=== PATIENT | female | born 1945 | race Caucasian/White ===

== ENCOUNTER 2020-05-09 07:06 | Outpatient (REF) | payer MEDICARE, SELFPAY ==
[2020-05-09 11:58] LABS: Anion Gap 14 (12-20); Blood Urea Nitrogen 19 mg/dL (9-16); Calcium 9.5 mg/dL (8.4-10.2); Carbon Dioxide 29 mmol/L (22-29); Chloride 99 mmol/L (96-108); Cholesterol 158 mg/dL; Estimated Glomerular Filt Rate 55; Glucose Random 114 mg/dL (60-115); HDL Cholesterol 46 mg/dL; LDL Cholesterol Calculated 84 mg/dl; Sodium 138 mmol/L (135-145); Triglycerides 141 mg/dL
[2020-05-09 12:21] LABS: ~HepC Num1 0.18 S/CO (0.00-0.79); ~Hepatitis C Antibody Nonreactive (Nonreactive)
== END 2020-05-09 07:07 | disposition home or self-care (01) ==
LOC: HO.HMGCLDS 07:06
PROVIDERS: PCP Nurse Practitioner Adult Health; Visit Provider Nurse Practitioner Adult Health
DX: Z00.00 Encounter for general adult medical examination without abnormal findings (principal)
CPT/HCPCS: 36415; 80048; 80061; 86803

== ENCOUNTER 2020-08-28 07:23 | Outpatient (REF) | payer MEDICARE, SELFPAY ==
[2020-08-28 12:14] LABS: Anion Gap 14 (12-20); Blood Urea Nitrogen 20 mg/dL (9-16); Calcium 9.5 mg/dL (8.4-10.2); Carbon Dioxide 29 mmol/L (22-29); Chloride 101 mmol/L (96-108); Estimated Glomerular Filt Rate 50; Glucose Random 107 mg/dL (60-115); Potassium 4.2 mmol/L (3.3-5.1); Sodium 140 mmol/L (135-145)
== END 2020-08-28 07:24 | disposition home or self-care (01) ==
LOC: HO.HMGCLDS 07:23
PROVIDERS: PCP Nurse Practitioner Adult Health; Visit Provider Nurse Practitioner Adult Health
DX: Z00.00 Encounter for general adult medical examination without abnormal findings (principal)
CPT/HCPCS: 36415; 80048

== ENCOUNTER 2021-03-20 09:00 | Outpatient (REF) | payer MEDICARE, SELFPAY ==
[2021-03-20 12:05] LABS: Anion Gap 13 (12-20); Blood Urea Nitrogen 18 mg/dL (9-16); Calcium 9.8 mg/dL (8.4-10.2); Carbon Dioxide 27 mmol/L (22-29); Chloride 103 mmol/L (96-108); Cholesterol 155 mg/dL; Estimated Glomerular Filt Rate 54; Glucose Random 118 mg/dL (60-115); HDL Cholesterol 46 mg/dL; LDL Cholesterol Calculated 79 mg/dl; Potassium 4.2 mmol/L (3.3-5.1); Sodium 139 mmol/L (135-145); Triglycerides 150 mg/dL
[2021-03-20 12:06] LABS: Thyroid Stimulating Hormone 1.81 uIU/mL (0.32-4.0)
== END 2021-03-20 09:01 | disposition home or self-care (01) ==
LOC: HO.HMGCLDS 09:00
PROVIDERS: Visit Provider Nurse Practitioner Adult Health
DX: E78.2 Mixed hyperlipidemia (principal)
CPT/HCPCS: 36415; 80048; 80061; 84443

== ENCOUNTER 2021-09-30 07:33 | Outpatient (REF) | payer MEDICARE, SELFPAY ==
[2021-09-30 11:47] LABS: Anion Gap 11 (12-20); Blood Urea Nitrogen 20 mg/dL (9-16); Calcium 9.1 mg/dL (8.4-10.2); Carbon Dioxide 29 mmol/L (22-29); Chloride 100 mmol/L (96-108); Cholesterol 152 mg/dL; Estimated Glomerular Filt Rate 50; Glucose Random 115 mg/dL (60-115); HDL Cholesterol 41 mg/dL; LDL Cholesterol Calculated 86 mg/dl; Potassium 4.1 mmol/L (3.3-5.1); Sodium 136 mmol/L (135-145); Triglycerides 127 mg/dL
[2021-09-30 11:54] LABS: Thyroid Stimulating Hormone 2.45 uIU/mL (0.32-4.0)
== END 2021-09-30 07:34 | disposition home or self-care (01) ==
LOC: HO.HMGCLDS 07:33
PROVIDERS: Visit Provider Nurse Practitioner Adult Health
DX: I10 Essential (primary) hypertension (principal); E78.2 Mixed hyperlipidemia; E66.9 Obesity, unspecified
CPT/HCPCS: 36415; 80048; 80061; 84443

== ENCOUNTER 2022-10-15 07:29 | Outpatient (REF) | payer MEDICARE, SELFPAY ==
[2022-10-15 12:12] LABS: Anion Gap 16 (12-20); Blood Urea Nitrogen 19 mg/dL (9-16); Calcium 9.9 mg/dL (8.4-10.2); Carbon Dioxide 25 mmol/L (22-29); Chloride 102 mmol/L (96-108); Cholesterol 145 mg/dL; Estimated Glomerular Filt Rate > 60; Glucose Random 121 mg/dL (60-115); HDL Cholesterol 37 mg/dL; LDL Cholesterol Calculated 76 mg/dl; Potassium 3.9 mmol/L (3.3-5.1); Sodium 139 mmol/L (135-145); Triglycerides 164 mg/dL
== END 2022-10-15 07:30 | disposition home or self-care (01) ==
LOC: HO.HMGCLDS 07:29
PROVIDERS: PCP Nurse Practitioner Adult Health; Visit Provider Nurse Practitioner Adult Health
DX: E78.2 Mixed hyperlipidemia (principal)
CPT/HCPCS: 36415; 80048; 80061

== ENCOUNTER 2023-04-17 08:16 | Outpatient (REF) | payer MEDICARE, SELFPAY ==
[2023-04-17 12:33] LABS: Anion Gap 12 (12-20); Blood Urea Nitrogen 23 mg/dL (9-16); Calcium 9.4 mg/dL (8.4-10.2); Carbon Dioxide 28 mmol/L (22-29); Chloride 103 mmol/L (96-108); Estimated Glomerular Filt Rate 53; Glucose Fasting 115 mg/dL (60-99); Potassium 4.1 mmol/L (3.3-5.1); Sodium 139 mmol/L (135-145)
== END 2023-04-17 08:17 | disposition home or self-care (01) ==
LOC: HO.HMGCLDS 08:16
PROVIDERS: PCP Nurse Practitioner Adult Health; Visit Provider Nurse Practitioner Adult Health
DX: I10 Essential (primary) hypertension (principal)
CPT/HCPCS: 36415; 80048

== ENCOUNTER 2023-09-25 13:06 | Outpatient (REF) | payer MEDICARE, SELFPAY ==
[2023-09-25 16:25] LABS: Anion Gap 12 (12-20); Blood Urea Nitrogen 16 mg/dL (9-16); Calcium 9.7 mg/dL (8.4-10.2); Carbon Dioxide 30 mmol/L (22-29); Chloride 97 mmol/L (96-108); Estimated Glomerular Filt Rate 60; Glucose Random 94 mg/dL (60-115); Potassium 3.8 mmol/L (3.3-5.1); Sodium 135 mmol/L (135-145)
== END 2023-09-25 13:07 | disposition home or self-care (01) ==
LOC: HO.HMGCLDS 13:06
PROVIDERS: Visit Provider Nurse Practitioner Adult Health
DX: I10 Essential (primary) hypertension (principal)
CPT/HCPCS: 36415; 80048

== ENCOUNTER 2024-04-07 12:39 | Outpatient (REF) | payer MEDICARE, SELFPAY ==
--- OUTSIDE RECORDS SUMMARY | 2024-04-07 14:59 | XMS_ITS | Data Portability ---
Author Organization [facility], FOR[facility]LY [facility] Address [address] [place] [address] Care Team Providers Care Engine Assembly Supervisor Name Role Phone BERRY JOSHI Primary Care Provider Assessment Encounter Date Assessment Date Assessment LastModified by Organization Details LastModified Time 05/12/2022 05/12/2022 Patient agreed t o this visit via a secure telehealth platform due to the COVID -19 pandemic. Patient understands this is a scheduled visit and the usual procedures with regard to billing and confidentiality apply. Patient was notified that the provider location is Patient location: home During the visit the patient? s medical history and medical record were reviewed. The patient was notified to call our office for worsening or urgent symptoms. Not available 05/12/2022 07:58:00 09/01/2022 09/01/2022 We completed you r Medicare Wellness exam today. This was an opportunity to assess your overall well being including your ability to care for yourself, your mobility, memory, mental health, as well as your safety. With advancing age, it is important to assign someone in your life as your Health Care Proxy (HCP). This person should know what is important to you and what your wishes are for medical procedures if you cannot communicate your wishes yourself (severe illness, unconsciousness). We discussed having a completed Health Care Proxy form today. In addition, today we started a conversation about your End of Life wishes. These conversations will continue over the years. Please consider reading the book, Being Mortal by Maxwell Tello to help frame future conversations. We discussed the purpose of a MOLST form (Medical Orders for Life Sustaining Treatment) and completed this form if appropriate per your wishes. Vision and Hearing are senses that are critically important as we age. When impaired, they can contribute to memory loss, falls, and make it harder to drive, talk to family and friends, and engage in the world. Please get your vision checked yearly and your hearing checked when you start to notice hearing loss. We discussed approaches to lowering your risk of heart disease and stroke . Your blood pressure is higher than goal consider lowering your salt intake. Your cholesterol .will recheck We discussed cancer screening you may need as well as vaccines to prevent infections. Colon Cancer : Your risk of colon cancer is higher than average due to personal history of colon polyps. Due for colorectal screenin. If you are not planning to have a colonoscopy please screen with stool cards yearly. Breast Cancer : Breast Cancer Screening (mammography). Next mammogram due: 2022. Cervical Cancer Screening (pap test). Next pap due: not needed. Influenza Vaccine : Flu shot yearly. Tetanus Vaccine : Every 10 years. Due: 2022. The following vaccines are available from your pharmacy: Pneumonia Vaccine : PCV20: once after age 65. Shingles Vaccine : 2 shots after age 50. Covid Vaccine : Make sure you have received the most up to date covid vaccine. Your personal health goal for the year is: [email or web address] Not available 09/01/2022 16:15:01 09/04/2023 09/04/2023 We completed you r Medicare Wellness exam today. This was an opportunity to assess your overall well being including your ability to care for yourself, your mobility, memory, mental health, as well as your safety. With advancing age, it is important to assign someone in your life as your Health Care Proxy (HCP). This person should know what is important to you and what your wishes are for medical procedures if you cannot communicate your wishes yourself (severe illness, unconsciousness). We discussed having a completed Health Care Proxy form today. In addition, today we started a conversation about your End of Life wishes. These conversations will continue over the years. Please consider reading the book, Being Mortal by Maxwell Tello to help frame future conversations. We discussed the purpose of a MOLST form (Medical Orders for Life Sustaining Treatment) and completed this form if appropriate per your wishes. Vision and Hearing are senses that are critically important as we age. When impaired, they can contribute to memory loss, falls, and make it harder to drive, talk to family and friends, and engage in the world. Please get your vision checked yearly and your hearing checked when you start to notice hearing loss. We discussed approaches to lowering your risk of heart disease and stroke . Your blood pressure is at goal. Your cholesterol is at goal. We discussed cancer screening you may need as well as vaccines to prevent infections. Colon Cancer : Your risk of colon cancer is higher than average due to personal history of colon polyps. Due for colorectal screenin. If you are not planning to have a colonoscopy please screen with stool cards yearly. Breast Cancer : Breast Cancer Screening (mammography). Next mammogram due: . Cervical Cancer Screening (pap test). Next pap due: not needed. Influenza Vaccine : Flu shot yearly. Tetanus Vaccine : Every 10 years. Due: 2023. The following vaccines are available from your pharmacy: Pneumonia Vaccine : PCV20: once after age 65. Shingles Vaccine : 2 shots after age 50. Covid Vaccine : Make sure you have received the most up to date covid vaccine. Your personal health goal for the year is: Patient is seen and examined with the above student. Assessment and Plan formulated with the above student collabratively with the patient. Berry lockett Not available 09/04/2023 17:06:37 Plan of Treatment Reminders Order Date Submit Date Provider Last Modified By Organization Details Last Modified Time Details Appointments Wellness Visit 30 2024 09:00A M Berry rivera, FIELD SALES ASSOCIATE Not available Not available Not available Lab BMP, serum or plasma [address] [facility], [place], [address], 06/01/2023 14:37:44 lipid panel, serum [email or web address] [facility], [place], [address], 06/01/2023 14:37:36 lipid panel, serum 2022 023 [facility], [place], [address], 10/16/2022 12:04:15 BMP, serum or plasma 2022 023 [facility], [address] [place] [address] [place], [address], 10/16/2022 12:04:14 BMP, serum or plasma [address] [facility], [address] [place] [address] [place], [address], 06/01/2023 14:37:27 BMP, serum or plasma 2023 024 [facility], [address] [place] [address] [place], [address], 09/28/2023 11:19:03 lipid panel, serum 2023 024 [facility], [address] [place] [address] [place], [address], 03/07/2024 16:15:24 CMP, serum or plasma 2023 024 [facility], [address] [place] [address] [place], [address], 03/07/2024 16:15:24 BMP, serum or plasma 2023 024 [facility], [address] [place] [address] [place], [address], 03/07/2024 16:15:24 Referral None recorded. Procedures colonosco py procedure (PROC) 2023 024 [facility] [address] [facility] [address], 09/07/2023 07:49:08 Surgeries None recorded. Imaging MAMMO, screening , tomosynth esis, bilateral [address] [facility] (Imaging), [address] , [place], [address], 03/18/2023 13:35:05 Medication Orders lisinopri l 40 mg tablet 2022 023 [facility] #[id number], [address] [place], [address], 05/12/2022 08:07:35 hydrochlo rothiazid e 25 mg tablet 2022 023 [id number], [address] [place], [address], 05/12/2022 08:07:36 carvedilo l 25 mg tablet 2022 023 [id number], [address] [place], [address], 05/12/2022 08:07:35 Patient TargetsNo targets recorded. Patient Instructions Encounter Date Encounter Id Patient Instructions Last Modified By Organization Details Last Modified Time 09/01/2022 [id number] advance directives: care instructions [email or web address] Not available 09/01/2022 16:12:26 preventing falls: care instructions [email or web address] Not available 09/01/2022 16:12:26 hearing loss: care instructions [email or web address] Not available 09/01/2022 16:12:26 well visit, over 65: care instructions [email or web address] Not available 09/01/2022 16:12:26 09/04/2023 [id number] CCM: The provider and patient discussed the Chronic Care Management program, including the services provided, and any fees associated with them. [email or web address] Not available 09/03/2023 14:33:55 Reason for Referral None Reported. Results Created Date Observation Date Name Description Value Unit Range Abnormal Flag Note LastModifiedBy Organization Detail LastModifiedTime 05/01/1905/01/2022 POC UA glu UA NEGATI VE Not Available [facility] [address] [place], [address], 05/01/2022 14:20:44 05/01/19 23 05/01/2022 POC UA clarity UA SLIGHT LY CLOUDY Not Available [facility] [address] [place], [address], 05/01/2022 14:20:44 05/01/19 23 05/01/2022 POC UA uro UA 0.2000 Not Available [facility] [address] [place] [address], [address], 05/01/2022 14:20:44 05/01/19 23 05/01/2022 POC UA ket UA NEGATI VE Not Available [facility] [address] [place] [address], [address], 05/01/2022 14:20:44 05/01/19 23 05/01/2022 POC UA pro UA NEGATI VE Not Available [facility] [address] [place] [address], [id number], 05/01/2022 14:20:44 05/01/19 23 05/01/2022 POC UA nit UA NEGATI VE Not Available [facility] [address] [place] [address], [address], 05/01/2022 14:20:44 05/01/19 23 05/01/2022 POC UA yessi UA NEGATI VE Not Available [facility] [address] [place] [address], [address], 05/01/2022 14:20:44 05/01/19 23 05/01/2022 POC UA pH UA 6.0000 Not Available [facility] [address] [place] [address], [address], 05/01/2022 14:20:44 05/01/19 23 05/01/2022 POC UA SG UA 1.0150 Not Available [facility] [address] [place] [address], [address], 05/01/2022 14:20:44 05/01/19 23 05/01/2022 POC UA color UA LIGHT YELLOW Not Available [facility] [address] [place] [address], [id number], 05/01/2022 14:20:44 05/01/19 23 05/01/2022 POC UA blo UA NEGATI VE Not Available [facility] [address] [place], [address], 05/01/2022 14:20:44 05/01/19 23 05/01/2022 POC UA debroa UA NEGATI VE Not Available [facility] [address] [place], [address], 05/01/2022 14:20:44 Result Notes None recorded. Problems Name Problem SNOMED Code Status Onset Date Resolution Date Notes Provider Name and Address Organization Details Recorded Time Disorder of skeletal system 05908001 Completed 200612/21/2012 Lani Dukes, FIELD SALES ASSOCIATE [address] [place], [address] , [facility] 3 13:41:38 Hypercalce caprice 10718939 Completed 200202/11/2011 Not Available [facility] 3 03:03:16 Essential hypertensi on 93070725 Completed 200202/11/2011 Not Available [facility] 3 03:03:16 Osteoporos is 04303293 Completed 200609/01/2011 Not Available [facility] 3 03:03:16 Menopausal symptom 85001538 Completed 200102/11/2011 Not Available [facility] 3 03:03:16 Benign essential hypertensi on 8884597 Active 2000 Not Available [facility] 3 20:15:52 Acute cystitis 08068688 Completed 200402/11/2011 Not Available [facility] 3 03:03:16 Impaired fasting glycemia 470527610 Active Not Available [facility] 3 20:15:52 Disorder of skin and/or subcutaneo tissue 96877708 Completed 200002/11/2011 Not Available [facility] 3 03:03:16 Pain of breast 04631812 Completed 200002/11/2011 Not Available [facility] 3 03:03:16 Epidermoid cyst of skin 130945304 Completed 02/11/2011 Not Available [facility] 3 03:03:16 Mixed hyperlipid emia 910173497 Active Not Available [facility] 3 20:15:52 Problem Notes None recorded. Procedures Surgical History Date Name Laterality Status Provider Name and Address Organization Details Recorded Time 09/04/19 19 20364: Therapeutic Exercise completed Bud Woods, PT [address] [place], [address], [facility] 09/03/2018 13:18:31 09/04/19 19 99516: Manual Therapy completed Bud Woods, PT [address] [place], [address], [facility] 09/03/2018 13:18:40 08/28/19 19 Physical Activity Counselling completed Bud Woods, PT [address] [place], [address], [facility] 08/27/2018 09:35:16 08/28/19 19 47832: PT Caitie, Moderate Complexity completed Bud Woods, PT [address] [place], [address], [facility] 08/27/2018 09:35:20 08/19/19 19 Medicare Wellness Visit completed Jenna Ojeda MA [facility] 08/18/2018 14:00:38 11/14/19 18 Alla - Colonoscopy completed Mohsen Gold MD [address] [place], [address], [facility] 11/13/2017 08:14:34 08/05/19 18 83095: Therapeutic Exercise completed Bud Woods, PT [address] [place], [address], [facility] 08/04/2017 15:33:18 07/24/19 18 99384: Therapeutic Exercise completed Bud Woods, PT [address] [place], [address], [facility] 07/23/2017 13:16:42 07/24/19 18 35778: Manual Therapy completed Bud Woods, PT [address] [place], [address], [facility] 07/23/2017 13:16:34 07/24/19 18 94102: Gait training completed Bud Woods, PT [address] [place], [address], [facility] 07/23/2017 13:16:50 07/10/19 18 61044: Therapeutic Exercise completed Bud Woods, PT [address] [place], [address], [facility] 07/09/2017 12:59:40 07/10/19 18 59859: Manual Therapy completed Bud Woods, PT [address] [place], [address], [facility] 07/09/2017 12:59:50 06/26/19 18 31258: Therapeutic Exercise completed Bud Woods, PT [address] [place], [address], [facility] 06/25/2017 12:59:42 06/26/19 18 07075: Manual Therapy completed Bud Woods, PT [address] [place], [address], [facility] 06/25/2017 12:59:49 06/19/19 18 13776: Therapeutic Exercise completed Bud Woods, PT [address] [place], [address], [facility] 06/18/2017 14:31:15 06/19/19 18 03711: Manual Therapy completed Bud Woods, PT [address] [place], [address], [facility] 06/18/2017 14:31:21 06/06/19 18 70543: Therapeutic Exercise completed Bud Woods, PT [address] [place], [address], [facility] 06/05/2017 13:28:46 06/06/19 18 01068: Manual Therapy completed Bud Woods, PT [address] [place], [address], [facility] 06/05/2017 13:28:43 05/26/19 18 74769: Therapeutic Exercise completed Bud Woods, PT [address] [place], [address], [facility] 05/25/2017 14:02:34 05/19/19 18 81087: Therapeutic Exercise completed Bud Woods, PT [address] [place], [address], [facility] 05/18/2017 13:10:20 05/19/19 18 87328: Manual Therapy completed Bud Woods, PT [address] [place], [address], [facility] 05/18/2017 13:10:27 05/12/19 18 30528: Therapeutic Exercise completed Bud Woods, PT [address] [place], [address], [facility] 05/12/2017 16:27:02 05/12/19 18 50526: Manual Therapy completed Bud Woods, PT [address] [place], [address], [facility] 05/12/2017 16:27:08 05/04/19 18 45348: Therapeutic Exercise completed Bud Woods, PT [address] [place], [address], [facility] 05/04/2017 12:49:28 05/04/19 18 93385: Manual Therapy completed Bud Woods, PT [address] [place], [address], [facility] 05/04/2017 12:49:34 04/27/19 18 Physical Activity Counselling completed Bud Woods, PT [address] [place], [address], [facility] 04/27/2017 12:44:39 04/27/19 18 25996: PT Eval, Moderate Complexity completed Bud Woods, PT [address] [place], [address], [facility] 04/27/2017 12:44:43 04/08/19 18 Medicare Wellness Visit completed Wendy Abbott LPN [facility] 04/08/2017 09:55:35 02/27/20 16 Medicare Wellness Visit completed Jenna Ojeda MA [facility] 02/27/2016 14:00:15 01/09/20 15 Medicare Wellness Visit completed Linda Nunez MA [facility] 01/08/2015 09:35:43 10/13/19 14 Medicare Wellness Visit completed Lanie Burden LPN [facility] 10/12/2013 11:25:02 09/01/19 12 Medicare Wellness Visit completed Kimi Cuadra MA [facility] 09/01/2011 09:27:20 Imaging Results None recorded. Procedure Notes None recorded. Medical Equipment None Reported. Allergies Allergen ID Allergen Name Allergen Category Reaction Reaction Severity Criticality Documentation Date Start Date Code Code System Note Provider Name and Address Organization Details Recorded Time 248132 atorvasta tin medicatio n myalgias (muscle pain) Not available Not available 10/20/2012 13900 RxNorm Lani Dukes NP [address] [place] [address], [facility] [place], [address] 3 13:15:39 Medications Name Sig Start Date Stop Date Status Note LastModified by Organization Details LastModified Time multivita min tablet Take 1 tablet every day by oral route. 2011 active Not Available Not Available Not Avai lable carvedilo l 25 mg tablet TAKE 1 TABLET BY MOUTH TWICE A DAY 2023 active Not Available Not Available Not Avai lable carvedilo l 6.25 mg tablet Take 1 tablet twice a day by oral route. active Not Available Not Available No t Available carvedilo l 12.5 mg tablet TAKE 1 TABLET BY MOUTH TWICE A DAY 2021 active Not Available Not Available Not Avai lable atorvasta tin 10 mg tablet Take 1 tablet every day by oral route. 10/20 completed Not Available Not Available Not Available atenolol 25 mg tablet Take 1 tablet every day by oral route. 02/19 completed Not Available Not Available Not Available pravastat in 10 mg tablet TAKE 1 TABLET BY MOUTH EVERY DAY 2023 active Not Available Not Available Not Avai lable Advil 200 mg tablet Take 1 tablet every day by oral route. 08/21 completed pt sttaes started taking tylenol OTC instead/ felt better 08/22/19LC Not Available Not Available Not Available aspirin 81 mg chewable tablet Chew 1 tablet every day by oral route. 02/26 completed Not Available Not Available Not Available hydrochlo rothiazid e 25 mg tablet TAKE 1 TABLET BY MOUTH EVERY DAY IN THE MORNING 2024 active Not Available Not Available Not Avai lable albuterol sulfate HFA 90 mcg/actua tion aerosol inhaler 04/18 completed Take 2.00 puffs 4 times a day as needed Not Available Not Available Not Available lisinopri l 40 mg tablet TAKE 1 TABLETS BY MOUTH EVERY DAY IN THE MORNING 2023 active Not Available Not Available Not Avai lable fluticaso ne propionat e 50 mcg/actua tion nasal spray,jose manuel pension SPRAY 1 SPRAY IN EACH NOSTRIL EVERY DAY 2021 active Not Available Not Available Not Avai lable atenolol 50 mg tablet TAKE 1 TABLET BY MOUTH TWICE A DAY active Not Available Not Available No t Available SOBA Chlorphen iramine Maleate 4 mg tablet Take 1 tablet every 4 hours by oral route. active [facility] Allergy Relief OTC Not Available Not Available Not Available Decavac (PF) 5 Lf unit-2 Lf unit/0.5 mL intramusc ular syringe active Not Available Not Available Not Available calcium active Not Available Not Avail able Not Available Viactiv active Not Available Not Avail able Not Available multivita min active Not Available Not Available Not Available Fluzone 6631-3906 45 mcg (15 mcg x 3)/0.5 mL intramusc ular suspensio n TO BE ADMINIST ERED BY PHARMACI ST FOR IMMUNIZA TION active Not Available Not Available No t Available Fluzone High-Dose (PF) 180 mcg/0.5 mL intramusc ular syringe TO BE ADMINIST ERED BY PHARMACI ST FOR IMMUNIZA TION active Not Available Not Available No t Available Fluzone High-Dose (PF) 180 mcg/0.5 mL intramusc ular syringe TO BE ADMINIST ERED BY PHARMACI ST FOR IMMUNIZA TION active Not Available Not Available No t Available Fluzone High-Dose 6620-3603 (PF) 180 mcg/0.5 mL intramusc ular syringe TO BE ADMINIST ERED BY A PHARMACI ST 02/26 completed Not Available Not Available Not Available Vitals Date Recorded Body height Provider Name an d Address Organization Details Last Updated DateTime 05/12/2022 157.48 [facility] 05/12/2022 08:00:41 Date Recorded Body height Provider Name an d Address Organization Details Last Updated DateTime 09/01/2022 154.94 cm Asia Mulligan [facility] 09/01/2022 15:49:59 Date Recorded Body mass index (BMI) Body weight Provider Name and Address Organization Details Last Updated DateTime 09/01/2022 33.5 kg/m2 55944.25 g Asia Mulligan [facility] 09/01/2022 15:49:57 Date Recorded Heart rate Provider Name an d Address Organization Details Last Updated DateTime 09/01/2022 74 /min Asia Mulligan [facility] 09/01/2022 15:57:34 Date Recorded Oxygen saturation Oxygen saturation in Arterial blood by Pulse oximetry Provider Name and Address Organization Details Last Updated DateTime 09/01/2022 99 % 99 % Asia Mulligan [facility] 09/01/2022 15:57:35 Date Recorded Body height Provider Name an d Address Organization Details Last Updated DateTime 03/04/2023 154.94 cm Asia Mulligan [facility] 03/04/2023 12:11:51 Date Recorded Heart rate Provider Name an d Address Organization Details Last Updated DateTime 03/04/2023 66 /min Asia Mulligan [facility] 03/04/2023 12:13:28 Date Recorded Oxygen saturation Oxygen saturation in Arterial blood by Pulse oximetry Provider Name and Address Organization Details Last Updated DateTime 03/04/2023 98 % 98 % Asia Mulligan [facility] 03/04/2023 12:13:29 Date Recorded Body height Provider Name an d Address Organization Details Last Updated DateTime 09/04/2023 154.31 cm Asia Mulligan [facility] 09/04/2023 15:49:16 Date Recorded Body mass index (BMI) Body weight Provider Name and Address Organization Details Last Updated DateTime 09/04/2023 34.3 kg/m2 03240.03 g Asia Mulligan [facility] 09/04/2023 15:49:10 Date Recorded Heart rate Provider Name an d Address Organization Details Last Updated DateTime 09/04/2023 74 /min Asia Mulligan [facility] 09/04/2023 15:53:36 Date Recorded Oxygen saturation Oxygen saturation in Arterial blood by Pulse oximetry Provider Name and Address Organization Details Last Updated DateTime 09/04/2023 98 % 98 % Asia Mulligan [facility] 09/04/2023 15:53:37 Date Recorded Body height Provider Name an d Address Organization Details Last Updated DateTime 03/07/2024 154.31 cm Brad Acosta Janet rocha [facility] 03/07/2024 12:27:52 Date Recorded Body mass index (BMI) Body weight Provider Name and Address Organization Details Last Updated DateTime 03/07/2024 33.1 kg/m2 82950.[address] [facility] [place] 03/07/2024 12:28:07 Date Recorded Oxygen saturation Oxygen saturation in Arterial blood by Pulse oximetry Provider Name and Address Organization Details Last Updated DateTime 03/07/2024 98 % 98 % Brad Acosta [facility] [place] 03/07/2024 12:28:09 Date Recorded Heart rate Provider Name an d Address Organization Details Last Updated DateTime 03/07/2024 68 /min Brad Acosta Janet rocha [facility] 03/07/2024 12:28:11 Date Recorded Systolic blood pressure Diastolic blood pressure Provider Name and Address Organization Details Last Updated DateTime 09/01/2022 152 mm[Hg] 62 mm[Hg] Asia Mulligan [facility] 09/01/2022 15:57:07 Date Recorded Systolic blood pressure Diastolic blood pressure Provider Name and Address Organization Details Last Updated DateTime 09/01/2022 150 mm[Hg] 63 mm[Hg] Asia Mulligan [facility] 09/01/2022 16:04:55 Date Recorded Systolic blood pressure Diastolic blood pressure Provider Name and Address Organization Details Last Updated DateTime 03/04/2023 122 mm[Hg] 76 mm[Hg] Asia Mulligan [facility] 03/04/2023 12:13:08 Date Recorded Systolic blood pressure Diastolic blood pressure Provider Name and Address Organization Details Last Updated DateTime 09/04/2023 124 mm[Hg] 72 mm[Hg] Asia Mulligan CMA [facility] 09/04/2023 15:53:20 Date Recorded Systolic blood pressure Diastolic blood pressure Provider Name and Address Organization Details Last Updated DateTime 03/07/2024 142 mm[Hg] 76 mm[Hg] ROBBY Herrera [facility] 03/07/2024 12:29:24 Date Recorded Systolic blood pressure Diastolic blood pressure Provider Name and Address Organization Details Last Updated DateTime 03/11/2024 138 mm[Hg] 69 mm[Hg] Eddie Russo RN [facility] 03/11/2024 12:13:58 Date Recorded Systolic blood pressure Diastolic blood pressure Provider Name and Address Organization Details Last Updated DateTime 03/11/2024 134 mm[Hg] 74 mm[Hg] Eddie Russo RN [facility] 03/11/2024 12:14:18 Date Recorded Systolic blood pressure Diastolic blood pressure Provider Name and Address Organization Details Last Updated DateTime 03/11/2024 136 mm[Hg] 72 mm[Hg] Eddie Russo RN [facility] 03/11/2024 12:14:37 Social History Question Answer Notes LastModified by Organizat ion Details LastModified Time Tobacco Smoking Status Never Smoker 05/12/22 [facility] 08:00:24 Do You Have An Advance Directive? Yes In Chart [email or web address] Information not available 04/18/2009 What Is Your Level Of Alcohol Consumption? Occasional 05/12/22 , 09/01/22, 03/04/23 , 09/04/[email or web address] Information not available 09/04/2023 Do You Wear A Helmet When Biking? Yes Information not available 10/12/2013 Are You Blind Or Do You Have Difficulty Seeing? No Information not available 10/12/2013 What Is Your Level Of Caffeine Consumption? Moderate 2-3 Cups Coffee Daily Information not available 10/12/2013 How Much Tobacco Do You Chew? None [email or web address] Information not available 01/08/2015 Are You Deaf Or Do You Have Serious Difficulty Hearing? No Information not available 10/12/2013 What Type Of Diet Are You Following? REGULAR Information not available 10/12/2013 Which Illicit Or Recreational Drugs Have You Used? None Information not available 02/27/2016 Do You Or Have You Ever Used E-cigarettes Or Vape? Never Used Electronic Cigarettes Information not available 02/21/2019 Have There Been Any Changes To Your Family Or Social Situation? No Information not available 09/01/2022 How Many Days In The Past Year Have You Had A Heavy Drinking Consumption (4+ Female, 5+ Male)? 0 Information not available 06/16/2012 Are There Any Guns Present In Your Home? No Information not available 10/12/2013 Do You Use Insect Repellent Routinely? No [email or web address] Information not available 09/01/2022 Live Alone Or With Others? With Others Information not available 10/12/2013 Does The Patient Have Difficulty Speaking Guamanian? No Information not available 10/12/2013 Does The Patient Have Difficulty Reading Guamanian? No Information not available 10/12/2013 Patient Has Health Care Proxy Signed And In Chart Yes - Radu Duron Information not available 02/27/2016 CCM Consent Discussion 06/25/2015 Consent Signed [email or web address] Information not available 06/25/2015 Marital Status Informatio n not available 10/12/2013 Mosquito Repellent Used Routinely Yes Information not available 10/12/2013 What Was The Date Of Your Most Recent Tobacco Screening? 09/04/2023 05/12/22 , 09/01/22, 03/[email or web address] Information not available 09/04/2023 How Many Children Do You Have? 2 Information not available 10/12/2013 Do You Use Your Seat Belt Or Car Seat Routinely? Yes [email or web address] Information not available 09/01/2022 Seat Belts Used Routinely Yes Information not available 10/12/2013 Smoke Alarm In Home Yes Information not available 10/12/2013 Do You Have Smoke And Carbon Monoxide Detectors In Your Home? Yes [email or web address] Information not available 09/01/2022 Are You Passively Exposed To Smoke? No [email or web address] Information not available 09/01/2022 Do You Or Have You Ever Used Smokeless Tobacco? Never Used Smokeless Tobacco Information not available 02/21/2019 General Stress Level Low Information not available 02/27/2016 Do You Use Sunscreen Routinely? Yes Information not available 10/12/2013 Sex: Female Functional Status Question Answer Note LastModified by Organization D etails LastModified Time Do you have difficulty walking or climbing stairs? No Information not available 10/12/2013 Do you have difficulty doing errands alone? No Information not available 10/12/2013 Do you have difficulty dressing or bathing? No Information not available 10/12/2013 Mental Status Question Answer Note LastModified by Organization D etails LastModified Time Do you have difficulty concentrating, remembering or making decisions? No Information no t available 10/12/2013 Family History Relationship Description Onset Age of this Age Resolved Age Notes LastModified by Organization Details LastModified Time Mother Hypertensive disorder [email or web address] Not available 01/08 10:35:10 Notes:Cardiovascular: Family history is remarkable for hypertension. mother and brother; mother has CHF/pacemaker Respiratory: Family history is remarkable for COPD. father Gastrointestinal: Family history is remarkable for Crohn's disease. brother Neurological: Family history is remarkable for seizure disorder. daughter, grandson with autism Psychiatric: Family history is remarkable for alcoholism. father Cancer: Family history is positive for colorectal cancer. mother Medical History No medical history recorded. Gynecological HistoryNo gynecological history recorded. Obstetrics History GPAL:G 0 P 0 0 0 0 Immunizations Vaccine Type Date Status Note Provider Nam e and Address Organization Details Recorded Time Influenza, split virus, trivalent, preservative 1 completed Not Available [facility] 04/02/2019 02:33:04 Td (adult), 5 Lf tetanus toxoid, preservative free, adsorbed 2 completed Not Available [facility] 04/02/2019 02:34:50 pneumococcal polysaccharide PPV23 2 completed Not Available [facility] 04/02/2019 02:28:10 Influenza, split virus, trivalent, preservative 2 completed Not Available [facility] 04/02/2019 02:18:37 Hep B, adult 3 completed Bharati Pugh RN null, [facility] 01/19/2023 10:16:44 Hep B, adult 4 completed Bharati Pugh RN null, [facility] 01/19/2023 10:16:44 Hep B, adult 3 completed Bharati Pugh RN null, [facility] 01/19/2023 10:16:44 Pneumococcal conjugate PCV 13 6 completed Not Available [facility] 04/02/2019 02:20:18 influenza, unspecified formulation 3 completed Bharati Pugh RN null, [facility] 01/19/2023 10:16:44 Influenza, high-dose, trivalent, PF 4 completed SASCHA Nicole, [facility] 01/19/2023 10:16:44 Influenza, high-dose, trivalent, PF 5 completed SASCHA Nicole, [facility] 01/19/2023 10:16:44 Influenza, high-dose, trivalent, PF 6 completed SASCHA Nicole, [facility] 01/19/2023 10:16:44 Influenza, split virus, quadrivalent, preservative 7 completed Bharati Pugh RN null, [facility] 01/19/2023 10:16:44 Influenza, high-dose, trivalent, PF 8 completed Bharati Pugh RN null, [facility] 01/19/2023 10:16:44 Influenza, high-dose, trivalent, PF 9 completed SASCHA Nicole, [facility] 01/19/2023 10:16:44 Influenza, high-dose, quadrivalent, PF 0 completed SASCHA Nicole, [facility] 01/19/2023 10:16:44 COVID-19, mRNA, LNP-S, PF, 30 mcg/0.3 mL dose 1 completed SASCHA Nicole, [facility] 01/19/2023 10:16:44 COVID-19, mRNA, LNP-S, PF, 30 mcg/0.3 mL dose 1 completed Bharati Pugh RN null, [facility] 01/19/2023 10:16:44 Influenza, high-dose, quadrivalent, PF 1 completed Bharati Pugh RN null, [facility] 01/19/2023 10:16:44 COVID-19, mRNA, LNP-S, PF, 30 mcg/0.3 mL dose 1 completed Bharati Pugh RN null, [facility] 01/19/2023 10:16:44 Influenza, high-dose, quadrivalent, PF 2 completed Bharati Pugh RN null, [facility] 01/19/2023 10:16:44 Influenza, adjuvanted, quadrivalent, PF 3 completed Bharati Pugh RN null, [facility] 01/19/2023 10:16:44 Past Encounters Encounter ID Performer Location Encounter Start Date Encounter Closed Date Diagnosis/Indication Diagnosis SNOMED-CT Code Diagnosis ICD10 Code Diagnosis Note [id number] , [facility] [place] [address] [place] [address] 03/30/2000 13:00:00 04/05/2008 02:02:29 [id number] , [facility] [place] [address] [place] [address] 1 10/26/2000 09:15:00 04/05/2008 02:02:29 [id number] Radiology , [facility] [address] [facility] [place] [address] 11/25/2000 14:30:00 04/05/2008 02:02:29 [id number] Radiology , [facility] [address] [facility] [place] [address] 1 11/25/2000 00:00:00 04/05/2008 02:02:29 [id number] , [facility] [place] [address] [place] [address] 1 11/04/2001 08:26:33 04/05/2008 02:02:29 [id number] Radiology , [address] [place] [address] 11/24/2001 11:08:44 04/05/2008 02:02:29 [id number] Radiology , [facility] [address] [facility] [place] [address] 1 11/24/2001 00:00:00 04/05/2008 02:02:29 [id number] LAB - [facility] [address] [facility] [place] [address] 1 11/24/2001 10:23:34 04/05/2008 02:02:29 [id number] Radiology , [facility] [address] [place] [address] 12/29/2001 08:31:58 04/05/2008 02:02:29 [id number] Radiology , [facility] [address] [place] [id number] 1 12/29/2001 00:00:00 04/05/2008 02:02:29 [id number] , [facility] [place] [address] [place] [address] 1 01/26/2002 10:23:40 04/05/2008 02:02:29 [id number] LAB - [facility] [address] [place] [address] 11/09/2002 08:04:37 04/05/2008 02:02:29 [id number] , [facility] [place] [address] [place] [address] 1 11/07/2002 08:31:41 04/05/2008 02:02:29 [id number] LAB - [facility] [place] [address] 1 11/21/2002 07:47:51 11/21/2002 12:57:39 [id number] LAB - [facility] [address] [place] [address] 1 12/07/2002 10:19:11 12/07/2002 13:44:03 [id number] Radiology , [facility] [address] [place] [address] 1 12/19/2002 11:26:18 12/19/2002 13:54:10 [id number] Radiology , [facility] [address] [place] [address] 1 12/19/2002 00:00:00 04/05/2008 02:02:29 [id number] LAB - [facility] [place] [address] 1 10/23/2003 09:29:27 10/23/2003 09:29:49 [id number] [facility] [place] [address] [place] [address] 1 10/23/2003 09:02:48 10/23/2003 10:07:27 [id number] [facility] [address] [place] [address] 1 05/23/2004 15:44:00 05/24/2004 08:31:57 [id number] Radiology , [facility] [address] [place] [address] 05/24/2004 10:59:59 05/24/2004 14:16:13 [id number] Radiology , [facility] [address] [place] [address] 05/24/2004 00:00:00 04/05/2008 02:02:29 [id number] LAB - [facility] [place] [address] 1 05/28/2004 07:29:08 05/28/2004 07:38:47 [id number] [facility] [address] [place] [address] 06/04/2004 12:17:43 06/05/2004 08:50:09 [id number] [facility] [address] [place] [address] 1 11/27/2005 09:40:23 11/27/2005 12:37:09 [id number] Radiology , [facility] [address] [place] [address] 01/09/2006 13:52:01 01/12/2006 07:07:39 [id number] [facility] [address] [place] [address] 1 12/22/2006 16:13:07 04/05/2008 02:02:29 [id number] Radiology , [facility] [address] [place] [address] 12/31/2006 14:28:06 12/31/2006 15:17:12 [id number] Radiology , [facility] [address] [place] [address] 01/13/2007 15:21:05 01/13/2007 16:47:07 [id number] LAB - [address] [place] [address] 1 01/26/2007 13:29:15 01/26/2007 13:29:18 [id number] Radiology , [facility] [address] [place] [address] 01/17/2008 13:25:46 01/17/2008 15:15:40 [id number] FP, [facility] [place] [address] [place] [address] 1 02/15/2008 13:29:44 04/05/2008 02:02:29 [id number] FP, [facility] [address] [place] [address] 1 02/15/2008 00:00:00 04/05/2008 02:02:29 [id number] FP, [facility] [address] [place] [address] 1 10/19/2008 13:58:11 10/25/2008 08:40:34 [id number] Radiology , [facility] [address] [place] [address] 03/19/2009 08:59:10 03/22/2009 13:13:32 [id number] Radiology , [facility] [address] [place] [address] 03/19/2009 09:02:00 03/22/2009 13:13:11 [id number] FP [facility] [place] [address] [place] [address] 1 04/18/2009 10:57:52 04/19/2009 09:01:41 [id number] FP, [facility] [address] [place] [address] 1 10/31/2009 10:54:55 10/31/2009 13:28:40 [id number] FP, [facility] [address] [place] [address] 1 11/30/2009 09:59:56 11/30/2009 14:06:01 [id number] Radiology , [facility] [address] [place] [address] 03/26/2010 07:55:00 03/28/2010 10:35:14 [id number] FP [facility] [place] [address] 1 07/16/2010 09:22:13 07/16/2010 11:26:41 [id number] FP [facility] [place] [address] 1 02/11/2011 09:52:43 02/11/2011 10:25:57 [id number] FP [facility] [address] [place] [address] 1 09/01/2011 09:18:38 09/01/2011 10:03:33 [id number] Radiology , [facility] [address] [place] [address] 1 09/01/2011 10:07:00 09/02/2011 10:20:10 [id number] Lani Dukes NP , [facility]ICE [address] [place] [address] [place] [id number] 02/20/2012 10:29:20 02/20/2012 16:41:10 [id number] Lani Dukes NP , [facility] [address] [place] [address] [place]el[place] [id number] 03/22/2012 09:14:42 03/22/2012 09:43:46 [id number] Lani Dukes NP , [facility] [address] [place] [address] [place] [address] 1 05/05/2012 11:15:14 05/05/2012 11:50:46 [id number] Lani Dukes NP , [facility] [address] [place] [address] ALFREDOSAMAN [place] [address] 06/16/2012 10:51:51 06/16/2012 11:29:45 [id number] Lanie Burden LPN , [facility] [address] [place] [address] [place] [id number] 09/28/2012 09:40:06 09/28/2012 10:35:37 [id number] Lani Dukes NP , [facility] [address] [place] [address] ALFREDOSAMAN [place] [address] 1 04/04/2013 09:10:14 04/04/2013 09:36:19 Benign essential hypertension 8181907 Blood pressure at goal Mixed hyperlipidemia 286763212 [id number] Sherri Sylvester , [facility] [address] [place] [address] DR [place] [address] 1 10/12/2013 11:10:48 10/12/2013 12:01:14 Mixed hyperlipidemia 693865019 At goal on statin. Benign ess ential hypertension 1964468 Blood pressure at goal Impaired f asting glycemia 375224508 Watch intake of white sugars and white flours. Adult heal th examination 582022201 see Risk Assessment and Lifestyle Change Counseling section above Screening mammography [id number] Fatigue [id number] EVERETTE Jane, [facility]ICE [address] [place] [address] [place] [address] 1 01/08/2015 09:33:46 01/08/2015 10:31:31 Mixed hyperlipidemia 894680995 E78.2 At goal on statin. Benign ess ential hypertension 2788885 I10 At goal. Adult heal th examination 500526931 Z00.00 see Risk Assessment and Lifestyle Change Counseling section above Screening mammography 24 645961 Z12.31 [id number] Lani Dukes NP , [facility] [place]ICE [address] [place] [address] 06/25/2015 10:22:52 06/25/2015 10:58:15 Screening for disorder 012269328 Z11.59 Mixed hyperlipidemia 267 458524 E78.2 Cholestero l is at goal Continue to work on diet and exercise as discussed Benign ess ential hypertension 5881818 I10 Blood pressure at goal Active or passive immunization 410328789 Z23 Impaired f asting glycemia 265651979 R73.01 Watch intake of white sugars and white flours. [id number] Mali Jacinto RDN, [place], [facility] [address] [facility] [place] [address] 06/28/2015 13:25:33 06/28/2015 14:32:12 Impaired fasting glycemia 099717926 R73.01 Benign ess ential hypertension 7615062 I10 Mixed hyperlipidemia 267 125133 E78.2 [id number] Miladys Reese , [facility] [place] [address] [place] [address] 07/24/2015 10:25:11 07/24/2015 15:21:28 Knee pain 90229396 M25.562 ice after exercise. when ready to exercise go back slowly at 10-15 minutes to start. tylenol prn pain. Benign ess ential hypertension 0491791 I10 sodium restrictio n. adjust medication . now off atenolol and on coreg after hospitaliz ation. Syncope 695773259 R55 normal workup. following acute pain and urinary voiding. [id number] Lani Dukes NP , [facility] [address] [place] [address] 08/08/2015 13:40:19 08/08/2015 14:04:24 Knee pain 64589035 M25.562 Benign hypertension 1072 5009 I10 Elevated office readings. [id number] Mali Jacinto RDN, [place], [facility] [address] [place] [address] 08/09/2015 11:20:28 08/09/2015 16:20:30 Benign essential hypertension 0710999 I10 Mixed hyperlipidemia 267 923999 E78.2 Impaired f asting glycemia 488121855 R73.01 [id number] EVERETTE Jane, [facility] [address] [place] [address] 1 02/27/2016 13:47:28 02/27/2016 14:36:22 Adult health examination 026520411 Z00.00 see Risk Assessment and Lifestyle Change Counseling section above Mixed hyperlipidemia 267 119207 E78.2 Cholestero l is at goal Continue to work on diet and exercise as discussed Benign ess ential hypertension 6699714 I10 Blood pressure at goal Screening mammography 24 854296 Z12.31 Impaired f asting glycemia 432006893 R73.01 Watch intake of white sugars and white flours. [id number] Lani Dukes NP , [facility] [address] [place] [address] 08/25/2016 09:12:57 08/26/2016 08:14:27 Benign essential hypertension 6227609 I10 Blood pressure at goal via home readings Mixed hyperlipidemia 267 844121 E78.2 Cholestero l is at goal Continue to work on diet and exercise as discussed [id number] Lani Dukes NP , [facility] [address] [place] [address] 1 04/08/2017 09:53:36 04/08/2017 10:47:12 Adult health examination 010592552 Z00.00 see Risk Assessment and Lifestyle Change Counseling section above Mixed hyperlipidemia 267 397884 E78.2 Cholestero l is at goal Continue to work on diet and exercise as discussed Benign ess ential hypertension 8302740 I10 Blood pressure at goal via home readings. Screening mammography 24 076280 Z12.31 Pain in left knee 601980 7290 63452 M25.164 [id number] Bud Levi i, PT Physical Therapy, [facility] [address] [place] [place] [address] 04/27/2017 11:48:00 04/27/2017 13:35:19 Pain in left knee 8507278131 91805 M25.516 [id number] Bud Levi i, PT Physical Therapy, [address] [address] 05/04/2017 10:58:06 05/04/2017 13:40:15 Pain in left knee 3774498107 75121 M25.981 [id number] Bud Levi i, PT Physical Therapy, [address] [address] 05/12/2017 15:31:39 05/12/2017 16:30:26 Pain in left knee 4859282647 64700 M25.041 [id number] Bud Levi i, PT Physical Therapy, [address] [address] 1 05/18/2017 08:28:30 05/18/2017 13:50:26 Pain in left knee 2847038606 76123 M25.016 [id number] Bud Levi i, PT Physical Therapy, [address] [address] 1 05/25/2017 13:31:29 05/25/2017 14:33:20 Pain in left knee 9229513720 66235 5.831 [id number] Bud Levi i, PT Physical Therapy, [address] [address] 1 06/05/2017 13:24:53 06/05/2017 13:43:50 Pain in left knee 6921946643 52441 5.870 [id number] Bud Levi i, PT Physical Therapy, [address] [address] 1 06/18/2017 13:56:56 06/18/2017 15:00:43 Pain in left knee 0519295091 73016 5.485 [id number] Bud Levi i, PT Physical Therapy, [address] [address] 1 06/25/2017 11:29:12 06/25/2017 13:09:06 Pain in left knee 6114405578 04146 M25.605 [id number] Bud Levi i, PT Physical Therapy, [address] [address] 1 07/09/2017 11:56:09 07/09/2017 13:32:05 Pain in left knee 3694906469 91961 M25.850 [id number] Bud Levi i, PT Physical Therapy, [address] [address] 1 07/23/2017 11:29:44 07/23/2017 13:31:13 Pain in left knee 6789277946 65955 M25.758 [id number] Bud Levi i, PT Physical Therapy, [address] [address] 1 08/04/2017 14:25:42 08/04/2017 15:40:35 Pain in left knee 4822683272 02938 M25.354 [id number] Lani Dukes NP , [facility] [address] [place] [address] 10/06/2017 09:08:48 10/06/2017 09:49:41 Mixed hyperlipidemia 137692841 E78.2 Cholestero l is at goal Continue to work on diet and exercise as discussed Benign ess ential hypertension 6984810 I10 Blood pressure at goal Impaired f asting glycemia 135002843 R73.01 Watch intake of white sugars and white flours. Screening for malignant neoplasm of colon 723512425 Z12.11 Pain in left knee 632739 6559 69084 M25.562 Has seen PT. Bunion 042934549 M21.61 9 Advised wide shoe. Consider wedge. [id number] Raven Hubbard RN [facility], [address] [address] 11/13/2017 06:58:17 11/13/2017 12:39:04 [id number] Lani Dukes NP , [facility] [address] [place] [address] 08/18/2018 13:58:40 08/18/2018 14:51:53 Adult health examination 853772681 Z00.00 see Risk Assessment and Lifestyle Change Counseling section above Depression screening 171 234663 Z13.89 depression screening tool administer ed, entered into emr, scored and discussed, time greater than 7.5 minutes Mixed hyperlipidemia 267 467792 E78.2 Cholestero l is at goal Continue to work on diet and exercise as discussed Benign ess ential hypertension 5943479 I10 Blood pressure at goal Impaired f asting glycemia 270050698 R73.01 Watch intake of white sugars and white flours. Bilateral knee pain 1187 230686 7512825 M25.561 Screening mammography 24 550645 Z12.31 [id number] Bud Levi i, PT Physical Therapy, [address] [address] 08/27/2018 08:46:32 08/27/2018 09:58:28 Pain in right knee [id number] 58292 M25.365 [id number] Bud Levi i, PT Physical Therapy, [address] [address] 09/03/2018 09:56:54 09/03/2018 14:44:04 Pain in right knee [id number] 94823 M25.479 [id number] Bud Levi i, PT Physical Therapy, [address] [address] 09/10/2018 09:27:19 09/10/2018 11:31:22 Pain in right knee [id number] 08505 M25.100 [id number] Bud Levi i, PT Physical Therapy, [address] [address] 09/15/2018 10:24:35 09/15/2018 11:44:14 Pain in right knee [id number] 25882 M25.037 [id number] Bud Levi i, PT Physical Therapy, [address] [address] 09/30/2018 14:27:04 09/30/2018 15:19:17 Pain in right knee [id number] 34548 M25.568 [id number] Bud Levi i, PT Physical Therapy, [address] [address] 10/13/2018 13:55:18 10/14/2018 10:48:05 Pain in right knee 6553052601 49057 M25.707 [id number] Bud Levi i, PT Physical Therapy, [address] [address] 10/21/2018 13:48:51 10/21/2018 14:48:45 Pain in right knee 1698922697 62976 M25.929 [id number] Bud Levi i, PT Physical Therapy, [address] [address] 10/27/2018 11:24:41 10/28/2018 10:40:18 Pain in right knee [id number] 43251 M25.339 [id number] Bud Levi i, PT Physical Therapy, [facility] [address] [place] [address] 11/10/2018 11:29:53 11/10/2018 14:24:16 Pain in right knee [id number] 33895 M25.466 [id number] EVERETTE Jane, [facility] [address] [place] [address] 02/21/2019 09:13:06 02/21/2019 09:39:25 Mixed hyperlipidemia 074302330 E78.2 Cholestero l is at goal Continue to work on diet and exercise as discussed Impaired f asting glycemia 872431331 R73.01 Watch intake of white sugars and white flours. Benign ess ential hypertension 5395943 I10 Blood pressure at goal [id number] EVERETTE Banks, [facility] [address] [place], [place] [address] 08/22/2019 08:13:57 08/24/2019 09:13:07 Essential hypertension 45653340 I10 Not controlled . Goal is <140/90-- Advised to cut lisinopril down to 40 mg daily-- If BP not at goal, increase hctz to 25 mg daily-- Continue carvedilol 12.5 BID-- Check BMP-- Check BP daily, record in log. Follow up in 2 weeks. If BP >180/100 call office. Pt agreed with plan. Mixed hyperlipidemia 267 642251 E78.2 Continue pravastati n 10 dailycheck lipids Impaired f asting glycemia 274838319 R73.01 recheck fasting glucose Exposure t o SARS-CoV-2 546989957 Z20.828 COunseled on Covid 19 and ways to reduce change of contractin g virus.Advi sed that on a bus, increased risk of exposure to Covid 19 as is enclosed space with oterh people, sharing the same air. Even with everyone wearing masks, may not be safe yet to travel this way. Advised to wait and see, monitor how things are going in the country. Advised to also monitor what the virus is doing at each destinatio n of the trip. Pt agrees with plan. [id number] Berry teague, FI[employer] SAL[employer]OCIATE FP, [facility] [place] [address] [place] [address] 09/05/2019 12:18:37 09/05/2019 13:41:37 Benign essential hypertension 6927959 I10 not at goal of <140/90-- continue lisinopril 40 mg daily-- increase HCTZ to 25 mg daily-- continue carvedilol 12.5 mg BID-- will check on lab results-- follow up in 2 weeks, if BP not at goal of <140/90 will consider adding amlodipine -- low salt diet and exercise advised Osteoarthr itis of knee 862371231 M17.9 Improving compared to 2 years ago. Completed PT.-- continue home exercises- - continue APAP once daily-- dsicussed options if pain worsens including steroid injections . Not needed at this time. [id number] Berry teague, FIELD SALES ASSOCIATE [employer], [facility] [place] [address] [place] [address] 03/05/2020 10:52:30 03/08/2020 09:42:19 Adult health examination 347051271 Z00.00 In good health no falls neesd lab slip (was sent to her house, did not arrive, will resend) mammo 10/05/2018, ordered colonoscop y 11/13/2017 , repeat 5 years Counseling 359851773 Z71 .9 including cardiovasc ular risk reduction counseling Depression screening 171 488524 Z13.89 depression screening tool administer ed, entered into emr, scored and discussed, time greater than 7.5 minutes Screening for alcohol abuse 551223595 Z13.39 Essential hypertension 98704277 I10 Improving continue lisinopril 40 mg daily, hctz 25 daily, and carvedilol 12.5 mg BID check BP at home later today and message result on the portal will recheck BMP Impaired f asting glycemia 050264334 R73.01 recheck fasting glucose Mixed hyperlipidemia 267 301223 E78.2 Continue pravastati n 10 daily check lipids Screening mammography 24 184334 Z12.31 [id number] Berry teague, FI[employer] SALES ASSOC[employer]ATE [employer], [facility] [address] [place] [address] 08/29/2020 09:26:35 08/29/2020 10:01:01 Essential hypertension 53709731 I10 Controlled continue lisinopril 40 mg daily, hctz 25 daily, and carvedilol 12.5 mg BID Impaired f asting glycemia 209331055 R73.01 labs done yesterda, no in yet Mixed hyperlipidemia 267 768791 E78.2 Continue pravastati n 10 daily Screening mammography 24 248592 Z12.31 Seasonal a llergic rhinitis 143671195 J30.2 Taking chlorphene ramine OTC and flonase, continue Pain in left knee 365371 5134 98659 M25.562 Chronic pain in L knee, OA, reports did pT in past take 1 tylenol daily with good relief -- advised can also try topical voltaren gel prn for flares [id number] Berry Maharaj er, FI[employer] SALES ASSOCIATE FP, [facility] [address] [place], [place] [address] 03/12/2021 10:56:01 03/12/2021 11:35:33 Adult health examination 262919967 Z00.00 In good health no fallsfully vaccinated against covid and boosted mammo 11/09/20 mammo birads 1 colonoscop y 11/13/2017 , repeat 5 years -- labs ordered Counseling 091780811 Z71 .9 including cardiovasc ular risk reduction counseling Depression screening 171 560561 Z13.31 depression screening tool administer ed, entered into emr, scored and discussed, time greater than 7.5 minutes Screening for alcohol abuse 553409915 Z13.39 Mixed hyperlipidemia 267 106950 E78.2 Continue pravastati n 10 daily Impaired f asting glycemia 851521123 R73.01 -- recheck labs Benign ess ential hypertension 6015860 I10 at goal of <140/90-- continue lisinopril 40 mg daily-- continue HCTZ to 25 mg daily-- continue carvedilol 12.5 mg BID-- labs ordere-- cont low salt diet and increase exercise Obesity 115003787 E66.9 weight stable, counseled on diet and exercisech kaelyn TSH [id number] Berry Maharaj er, FI[employer] SALES ASSOCIATE FP, [facility] [address] [place], [place] [address] 09/10/2021 10:16:59 09/10/2021 11:37:31 Mixed hyperlipidemia 753966209 E78.2 Continue pravastati n 10 dailycheck labs Impaired f asting glycemia 739593878 R73.01 -- recheck labs Benign ess ential hypertension 0824838 I10 Not at goal, is currently ill with covid-- check BP over next 2 weeks, record in log. Nursing to call in 2 weeks to review. If most recent readings not at goal of <140/90, will increase carvedilol to 25mg bid with BP check 2 weeks later-- continue lisinopril 40 mg daily-- continue HCTZ to 25 mg daily-- continue carvedilol 12.5 mg BID-- labs ordered-- cont low salt diet and increase exercise Obesity 901954211 E66.9 counseled on diet and exercisech kaelyn TSH COVID-19 881567788 U07.1 Symptoms started September 01, tested positive that same daySore throat, congestion , cough, loss sense of taste, lethargySy mptoms come and goHad one fever, then resolved with APAPNo dyspnea Reviewed CDC isolation guidelines rest, fluids advisedif worsenign call office Advised booster in the fall [id number] Berry Maharaj er, FI[employer] SALES ASSOCIATE FP, [facility] [address] [place], [place] [address] 11/13/2021 09:43:22 11/13/2021 13:32:38 Benign essential hypertension 8035993 I10 At goal of <140/90-- continue lisinopril 40 mg daily-- continue HCTZ to 25 mg daily-- continue carvedilol 12.5 mg BID-- cont low salt diet and increase exercise Essential hypertension 40517628 I10 Controlled continue lisinopril 40 mg daily, hctz 25 daily, and carvedilol 12.5 mg BID Mixed hyperlipidemia 267 774475 E78.2 Controlled , Continue pravastati n 10 daily Pain in throat 652923563 R07.0 Sore throat started , with cough and headache. Exposed to covid while on cruise. 2 negative home tests. Is vaccinated , 1 booster, had covid in August. -- PCR test today-- based on symptoms and exposure ray had covid, advised to wear well fitting mask through to thursday-- if worsening, follow up [id number] JUNE LARISA GERBER, KIRSTIE FP, [facility] [place]ICE [address] [place] [address] 05/01/2022 13:52:54 05/02/2022 09:07:40 Increased frequency of urination 476856452 R35.0 UA negative Left lower quadrant pain 182711419 R10.32 LLQ discomfort x 2 days, pain 2/10. Also with symptoms of urinary frequency, dysuria, and urgency. Denies flank pain, hematuria, hx kidney stones, IBD, N/V/D, vaginal discharge. Symptoms have improved today. She reports diverticul osis on last colonoscop y 5 years ago. Suspect possible diverticul itis given mild LLQ tenderness in setting of normal UA, absence of flank pain, hematuria. Discussed CLD over the next 2-3 days and can increase as tolerated. Continue to monitor temp and report any readings > 101F, inability to tolerate PO intake, worsening abdominal pain, N/V/D. UC contact informatio n given if symptoms worsen over the weekend. She will let this FIELD SALES ASSOCIATE know if symptoms worsen for further eval [id number] Berry teague, FI[employer] SAL[employer] ASSOCIATE [employer], [facility] [place] [address] [place] [address] 05/12/2022 07:57:09 05/12/2022 14:12:43 Benign essential hypertension 7251900 I10 At goal of <140/54156 /66 yesterday- - continue lisinopril 40 mg daily-- continue HCTZ to 25 mg daily-- continue carvedilol 25 mg BID-- cont low salt diet and increase exercise-- check labs prior to wellness visit in August Bilateral cataracts 9572 2003 H26.9 To have surgery this year, pt hoping to have done in the spring.Pt will advise if she needs pre-opShe is healthy, BP controlled , no restrictio ns for the surgery. Low risk. [id number] Berry teague, FI[employer] SAL[employer] ASSOCIATE [employer], [facility] [place] [address] [place] [address] 09/01/2022 15:44:49 09/01/2022 16:50:40 Adult health examination 749843757 Z00.00 In good health no fallswill get covid booster this weekMammo later this yearcolono scopy 11/13/2017 , repeat 5 years, due, she will call to schedule after her upcoming trip due for labs, ordered and provided patient hard copy Depression screening 171 Z13.31 depression screening tool administer ed Screening for alcohol abuse 367108673 Z13.39 Alcohol use screening tool administer ed Mixed hyperlipidemia 267 719559 E78.2 Controlled , Continue pravastati n 10 dailyreche ck labs Benign ess ential hypertension 3828758 I10 NOt at goal, states better controlled at home but not consistent ly at goaldoes not want to add med-- continue lisinopril 40 mg daily, HCTZ to 25 mg daily, carvedilol 25 mg BID-- cont low salt diet and increase exercise-- pt to monitor at home and send readings on portal-- check BMP Screening mammography 24 084384 Z12.31 Bilateral cataracts 9572 2003 H26.9 Surgery last week, went well, getting other eye done next week [id number] Berry teague, FI[employer] SALES ASSOCIATE [employer], [facility] [place] [address] [place] [address] 03/04/2023 12:06:07 03/04/2023 12:28:46 Benign essential hypertension 8451855 I10 Controlled -- continue lisinopril 40 mg daily, HCTZ to 25 mg daily, carvedilol 25 mg BID-- cont low salt diet and increase exercise Mixed hyperlipidemia 267 998422 E78.2 Controlled , Continue pravastati n 10 daily Impaired f asting glycemia 168649146 R73.01 stable-- recheck labs [id number] Berry teague, FIELD SALES ASSOCIATE [employer], [facility] [place] [address] [place] [address] 09/04/2023 15:44:39 09/07/2023 13:12:41 Adult health examination 645764085 Z00.00 In good health no falls colonoscop y 11/13/2017 , repeat 5 years, due, she will call to schedule Counseled on breast cancer screening guidelines , if patient prefers to continue screening she will call and we will place order. due for labs, ordered and provided patient hard copy Health proxy on file MOLST discussed, pt will bring home to review with family, follow up to fill out in office will offer Td shot at next visit Depression screening 171 Z13.31 depression screening tool administer ed Screening for alcohol abuse 824237606 Z13.39 Alcohol use screening tool administer ed Screening for malignant neoplasm of colon 200440086 Z12.11 Referral for a DIRECT booked colonoscop y. This patient is a healthy ASA Class 1 or 2 patient (only mild systemic disease), or a STABLE, well controlled insulin dependent diabetic. They do not have serious cardiac disease ie AK/angiopl asty within 1 year, symptomati c CHF; renal failure with CKD 4 or 5; take Coumadin, Plavix, Aggrenox, etc. 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 5 up 3 lbs from last year, discussed regular movement and exercise, balanced diet Impaired f asting glycemia 274324518 R73.01 stable, fasting glucose 115 Mixed hyperlipidemia 267 786460 E78.2 Controlled , Continue pravastati n 10 daily [id number] Berry Maharaj er, FIELD SALES ASSOCIATE FP, [facility] [address] [place] [address] 03/07/2024 12:09:48 03/07/2024 13:07:26 Benign essential hypertension 6156486 I10 Above goal, reports is controlled or near goal at home-- repeat bmp non fasting-- continue lisinopril 40 mg daily, HCTZ to 25 mg daily, carvedilol 25 mg BID-- cont low salt diet and increase exercise-- monitor BP at home, nursing to call end of the week for BP readings Influenza vaccination declined 676799133 Z28.21 Mixed hyperlipidemia 267 802189 E78.2 Controlled , Continue pravastati n 10 dailycheck fasting labs before wellness Impaired f asting glycemia 260833833 R73.01 stablerech kaelyn before wellness visit Health Concerns Section Related Observation LastModified by Organization Detai ls LastModified Time None Recorded Concern Status LastModified by Organization Details LastModified Time None Recorded Advance Directives Directive Y: in chart Payers Encounter Date Sequence Insurance Name Policy Number Policy Alexandra Covered Member ID Alexandra Member ID Guarantor Name 05/12/2022 1 [employer] PLAN (MEDICARE REPLACEMENT HMO) [id number] 4 Luana Fermin Domi [id number] Luana M Domi 09/01/2022 1 [employer] (MEDICARE REPLACEMENT HMO) [id number] 4 LuanaGretta Domi [id number] Luana M Domi 03/04/2023 1 [employer] (MEDICARE REPLACEMENT HMO) [id number] 4 LuanaGretta Domi [id number] Luana M Domi 09/04/2023 1 [employer]AN (MEDICARE REPLACEMENT HMO) [id number] 4 LuanaGretta Domi [id number] Luana M Domi 03/07/2024 1 [employer] (MEDICARE REPLACEMENT HMO) [id number] 4 LuanaGretta Domi [id number] Luana Zander Domi Notes Date Note Type Note Provider Name and Address Organization Details Recorded Time 3 text/html Time for intake: {{1 2 3 4* 5 6 7 8 9 10 11 12 13 14 15 16 17 18 19 20 21 22 23 24 25}} minutes. needs to have cataracts done, hopes to do this springBP mostly controlled at home, 126/66 yesterdayno health concerns, feels wellgoing [place] in the fall Berry Joshi , EV[place]ETTE [address] [place] [address], [phone], [facility] 05/12/2022 08:17:21 3 text/html Physical Exam/FemaleReported bypatient.PHAPatient is here for a Wellness Visit. She describes her health status as good. Patient's health is the same as last year.Risk Assessment and Lifestyle Change Counseling 65+ (Medicare)Reported bypatient.Coronary Artery Disease Risk Assessment:No Family history of coronary artery disease; No personal history of diabetes; No history of peripheral vascular disease, AAA, or carotid disease; No personal history of coronary artery disease; [place] 10 year risk Breast Cancer Risk Assessment:No family history of breast cancer; No history of breast cancer or dcis Colon Cancer Risk Assessment:Family history of pre cancerous colon polyps or colon cancer Lung Cancer Risk Assessment:Never smoked; No asbestos exposure Fracture Risk Assessment:No unexplained fracture; No use of corticosteroids; No anti-seizure medication;Abnormal bone density osteopenia; Has adequate calcium intake; Taking Vitamin D supplement; No chronic use of proton pump inhibitors Cognitive/Behavioral Risk Assessment:No personal history of mental illness; No family history of mental illness Safety Risk Assessment:Has grab bars in bathroom; No falls; No evidence of abuse/neglect Functional Status:Patient does not have trouble hearing the television or radio when others do not.; Patient does not have to strain or struggle to hear/understand conversations; Patient does not need help with preparing meals, transportation, shopping, taking medicine, managing finances, or other activities of daily living.; Patient does not have visual loss that interferes with daily activities; Does not live alone; Patient was not unsteady and did not take longer than 30 seconds during the timed get up and go test. Diet:Counseled about eating a diet low in trans and saturated fats and high in fiber, fruits and vegetables; Discussed the value of a Mediterranean diet , and eating more fruits and vegetables Exercise counseling:Discussed the importance of daily physical activityVMG HyperlipidemiaReported bypatient.Duration:diagnose d in last year Control:well controlled; improved since last visit; LDL has been <100, goal is <130; treated with medications; Patient understands medications are to lower cholesterol Compliance:compliant with medications; compliant with follow-up visits; compliant with diet Barriers to CareNo identified barriers to care Context:Nonsmoker; No ischemic heart disease; No peripheral vascular disease (74205); No diabetes; No carotid artery stenosis Associated Symptoms:no muscle pain; no fatigue; no chest discomfort; no dyspnea; no change in exercise capacity Ability to Manage Self CareOn how confident the patient feels in ability to self manage condition the patient selects 9 with 10 being very confident and 1 being very low confidence; Patient feels very confident in ability to self manage conditionVMG HypertensionReported bypatient.Context:No ischemic heart disease; No kidney disease; No history of CVA; No congestive heart failure; No history of transient ischemic attacks; No peripheral vascular disease; No history of diabetes Control:BP Goal less than (140/90); Treated with medications; Patient understands medications are to lower blood pressure Compliance:Compliant with medications; Compliant with diet; Compliant with exercise; Compliant with follow-up visits Barriers to CareNo identified barriers to care Self Care:not doing home bp monitoring Associated Symptoms:No chest pain; No shortness of breath; No edema; No fatigue; No palpitations; No decline in exercise capacity; No snoring Ability to Manage Self CareOn how confident the patient feels in ability to self manage condition the patient selects 9 with 10 being very confident and 1 being very low confidence; Patient feels very confident in ability to self manage condition Welless visit today had cataract surgery last week, next is for this weekit went well no dizziness or falls states things at home are going wellthey care for their autistic grandson on weekends says BP at home 130s - 140s / 70snever adds saltwalks leaving for a cruise to [place] beginning of September goes to [facility] labs Berry Joshi NP [address] [place], [address], [facility] 09/01/2022 16:27:37 3 text/html Doing well L eyelid bothering her (had stye surgically removed, not problem with lid), dry eyes, has appt w eye doctor Berry Joshi NP [address] [place], [address], [facility] 03/04/2023 13:43:56 4 text/html Physical Exam/FemaleReported bypatient.PHAPatient is here for a Wellness Visit. She describes her health status as good. Patient's health is the same as last year.Risk Assessment and Lifestyle Change Counseling (Medicare)Reported bypatient.Coronary Artery Disease Risk Assessment:No Family history of coronary artery disease; No personal history of diabetes; No history of peripheral vascular disease, AAA, or carotid disease; No personal history of coronary artery disease; [place] 10 year risk Breast Cancer Risk Assessment:No family history of breast cancer; No history of breast cancer or dcis Colon Cancer Risk Assessment:Family history of pre cancerous colon polyps or colon cancer Lung Cancer Risk Assessment:Never smoked; No asbestos exposure Fracture Risk Assessment:No unexplained fracture; No use of corticosteroids; No anti-seizure medication;Abnormal bone density osteopenia; Has adequate calcium intake; Taking Vitamin D supplement; No chronic use of proton pump inhibitors Cognitive/Behavioral Risk Assessment:No personal history of mental illness; No family history of mental illness Safety Risk Assessment:Has grab bars in bathroom; No falls; No evidence of abuse/neglect Functional Status:Patient does not have trouble hearing the television or radio when others do not.; Patient does not have to strain or struggle to hear/understand conversations; Patient does not need help with preparing meals, transportation, shopping, taking medicine, managing finances, or other activities of daily living.; Patient does not have visual loss that interferes with daily activities; Does not live alone; Patient was not unsteady and did not take longer than 30 seconds during the timed get up and go test. Diet:Counseled about eating a diet low in trans and saturated fats and high in fiber, fruits and vegetables; Discussed the value of a Mediterranean diet , and eating more fruits and vegetables Exercise counseling:Discussed the importance of daily physical activityVMG HyperlipidemiaReported bypatient.Duration:diagnose d in last year Control:well controlled; improved since last visit; LDL has been <100, goal is <130; treated with medications; Patient understands medications are to lower cholesterol Compliance:compliant with medications; compliant with follow-up visits; compliant with diet Barriers to CareNo identified barriers to care Context:Nonsmoker; No ischemic heart disease; No peripheral vascular disease (15992); No diabetes; No carotid artery stenosis Associated Symptoms:no muscle pain; no fatigue; no chest discomfort; no dyspnea; no change in exercise capacity Ability to Manage Self CareOn how confident the patient feels in ability to self manage condition the patient selects 9 with 10 being very confident and 1 being very low confidence; Patient feels very confident in ability to self manage conditionVMG HypertensionReported bypatient.Context:No ischemic heart disease; No kidney disease; No history of CVA; No congestive heart failure; No history of transient ischemic attacks; No peripheral vascular disease; No history of diabetes Control:BP Goal less than (140/90); Treated with medications; Patient understands medications are to lower blood pressure Compliance:Compliant with medications; Compliant with diet; Compliant with exercise; Compliant with follow-up visits Barriers to CareNo identified barriers to care Self Care:not doing home bp monitoring Associated Symptoms:No chest pain; No shortness of breath; No edema; No fatigue; No palpitations; No decline in exercise capacity; No snoring Ability to Manage Self CareOn how confident the patient feels in ability to self manage condition the patient selects 9 with 10 being very confident and 1 being very low confidence; Patient feels very confident in ability to self manage condition LD presents to the office for wellness visit. She states that her overall health is good . She notes that her BP has been stable on current medication regimen. She mentioned that she is concerned for bilateral hearing loss and that her R. Knee is stiff . She attended physical therapy in the past for similar sx but she stated it wasn't too helpful. Patient also concerned for difficulty losing weight. no falls Berry Joshi NP [address] [place] [address], [id number], [facility] 09/04/2023 17:07:31 4 text/html VMG HyperlipidemiaReported bypatient.Duration:diagnose d in last year Control:well controlled; improved since last visit; LDL has been <100, goal is <130; treated with medications; Patient understands medications are to lower cholesterol Compliance:compliant with medications; compliant with follow-up visits; compliant with diet Barriers to CareNo identified barriers to care Context:Nonsmoker; No ischemic heart disease; No peripheral vascular disease ([address]94); No diabetes; No carotid artery stenosis Associated Symptoms:no muscle pain; no fatigue; no chest discomfort; no dyspnea; no change in exercise capacity Ability to Manage Self CareOn how confident the patient feels in ability to self manage condition the patient selects 9 with 10 being very confident and 1 being very low confidence; Patient feels very confident in ability to self manage conditionVMG HypertensionReported bypatient.Context:No ischemic heart disease; No kidney disease; No history of CVA; No congestive heart failure; No history of transient ischemic attacks; No peripheral vascular disease; No history of diabetes Control:BP Goal less than (140/90); Treated with medications; Patient understands medications are to lower blood pressure Compliance:Compliant with medications; Compliant with diet; Compliant with exercise; Compliant with follow-up visits Barriers to CareNo identified barriers to care Self Care:not doing home bp monitoring Associated Symptoms:No chest pain; No shortness of breath; No edema; No fatigue; No palpitations; No decline in exercise capacity; No snoring Ability to Manage Self CareOn how confident the patient feels in ability to self manage condition the patient selects 9 with 10 being very confident and 1 being very low confidence; Patient feels very confident in ability to self manage condition Reports BP at home usually 130 arthritistakes tylenol cooks most of the mealswatches fats and salt does chair exercisesdoes the stairs Berry Joshi NP [address] [place] [address], [id number], [facility] 03/07/2024 12:43:51 OBGyn Episode No OBEpisode recorded.
[2024-04-07 17:10] LABS: Anion Gap 12 (12-20); Blood Urea Nitrogen 18 mg/dL (9-16); Calcium 9.6 mg/dL (8.4-10.2); Carbon Dioxide 28 mmol/L (22-29); Chloride 103 mmol/L (96-108); Estimated Glomerular Filt Rate 55; Glucose Random 100 mg/dL (60-115); Potassium 4.3 mmol/L (3.3-5.1); Sodium 139 mmol/L (135-145)
== END 2024-04-07 12:40 | disposition home or self-care (01) ==
LOC: HO.HMGCLDS 12:39
PROVIDERS: PCP Nurse Practitioner Adult Health; Visit Provider Nurse Practitioner Adult Health
DX: I10 Essential (primary) hypertension (principal)
CPT/HCPCS: 36415; 80048

== ENCOUNTER 2024-09-12 08:56 | Outpatient (REF) | payer MEDICARE, SELFPAY ==
--- OUTSIDE RECORDS SUMMARY | 2024-09-12 09:11 | XMS_ITS | Data Portability ---
Author Organization [facility], , [facility] Address [address] [place] [address] Care Team Providers Care Special Education Instructor Name Role Phone BERRY JOSHI Primary Care Provider Assessment Encounter Date Assessment Date Assessment LastModified by Organization Details LastModified Time 09/01/2022 09/01/2022 We completed you r Medicare [...] personal health goal for the year is: levy Not available 09/01/2022 16:15:01 09/04/2023 09/04/2023 We [...] patient. Berry lockett Not available 09/04/2023 17:06:37 07/22/2024 07/22/2024 We reviewed your chronic medical conditions and updated your plan for management. Please review instructions below. We have discussed your personal goals and discussed how to reach your goals. Please reach out to us via the Portal or phone if you have questions about your chronic conditions or if you or your caregivers require assistance in meeting your goals. Please visit our website [facility] for more patient resources. As part of your care plan, we will help coordinate your ongoing medical needs, arrange for durable medical equipment, renew prescriptions and necessary prior authorizations, facilitate getting referrals and collaborating with specialist, referrals for VNA services. [email or web address] Not available 07/22/2024 09:35:42 Plan of Treatment Reminders Order Date Submit Date Provider Last Modified By Organization Details Last Modified Time Details Appointments Wellness Visit 30 2024 09:00A M Berry rivera NP Not available Not available Not available Lab lipid panel, serum 2023 [facility], [place], [address], 03/07/2024 16:15:24 CMP, serum or plasma 2023 024 [facility], [place], [address], 03/07/2024 16:15:24 BMP, serum or plasma 2023 024 [facility], [address] [place] [address] [place], [address], 04/08/2024 13:04:38 BMP, serum or plasma 2023 024 [facility], [address] [place] [address] [place], [address], 09/28/2023 11:19:03 BMP, serum or plasma [address] [facility], [address] [place] [address] [place], [address], 06/01/2023 14:37:27 lipid panel, serum 2022 023 [facility], [address] [place] [address] [place], [address], 10/16/2022 12:04:15 BMP, serum or plasma 2022 023 [facility], [address] [place] [address] [place], [address], 10/16/2022 12:04:14 Referral None recorded. Procedures colonosco py procedure (PROC) 2023 024 [facility], [address] [place], [address], 09/07/2023 07:49:08 Surgeries None recorded. Imaging MAMMO, screening , tomosynth esis, bilateral 2022 023 [facility] (Imaging), [address] , [place], [address], 03/18/2023 13:35:05 Medication Orders prednison e 20 mg tablet 2024 025 [facility] #[id number], [address] [place], [address], 07/22/2024 14:08:31 Patient TargetsNo targets recorded. Patient Instructions Encounter Date Encounter Id Patient Instructions Last Modified By Organization Details Last Modified Time 09/01/2022 [id number] advance directives: care instructions [email or web address] Not available 09/01/2022 16:12:26 preventing falls: care instructions [email or web address] Not available 09/01/2022 16:12:26 hearing loss: care instructions [email or web address] Not available 09/01/2022 16:12:26 well visit, over 65: care instructions [email or web address] Not available 09/01/2022 16:12:26 09/04/2023 [id number] CCM: The provider and patient discussed the Chronic Care Management program, including the services provided, and any fees associated with them. [email or web address] Not available 09/03/2023 14:33:55 07/22/2024 [id number] CCM: The provider and patient discussed the Chronic Care Management program, including the services provided, and any fees associated with them. [email or web address] Not available 07/22/2024 13:46:23 Reason for Referral None Reported. Results Created Date Observation Date Name Description Value Unit Range Abnormal Flag Note LastModifiedBy Organization Detail LastModifiedTime 07/23/1907/22/2024 XR, knee, weigh tbear ing CLINIC AL HISTOR Y: Left knee pain. TECHNI QUE: AP, obliqu e and latera l views of the left knee obtain ed. COMPAR BILL: 08/20/19 FINDIN GS: There is no fractu re, sublux ation or disloc ation. There is severe medial compar tment joint space narrow ing. There is increa sed densit y along the latera l aspect of the knee joint. There is a large knee effusi on. IMPRES FLOR: No visibl e fractu re. Large knee effusi on with densit y most promin ent latera lly and superi ciro. Consid er the possib ility of an underl dorie ligame nt injury . Leanna bardales Physic ricky: Corinne Vaughan ms [facility] (Imaging) [address], [place], [address], 07/24/2024 07:38:44 Result Notes Documentation Provider Name and Address Organization Details Recorded Time Xr, Knee, Weightbearing : CLINICAL HISTORY: Left knee pain. TECHNIQUE: AP, oblique and lateral views of the left knee obtained. COMPARISON: 08/19/2018 FINDINGS: There is no fracture, subluxation or dislocation. There is severe medial compartment joint space narrowing. There is increased density along the lateral aspect of the knee joint. There is a large knee effusion. IMPRESSION: No visible fracture. Large knee effusion with density most prominent laterally and superiorly. Consider the possibility of an underlying ligament injury. Reading Physician: Reagan Joshi NP [address] [place] [address], [address], [facility] 07/23/2024 17:59:09 Problems Name Problem SNOMED Code Status Onset Date Resolution Date Notes Provider Name and Address Organization Details Recorded Time Disorder of skeletal system 11374538 Completed 200612/21/2012 Lani Dukes NP [address] [place] [address], [address] , [facility] 3 13:41:38 Hypercalce caprice 22403380 Completed 200202/11/2011 Not Available [facility] 3 03:03:16 Essential hypertensi on 34879425 Completed 200202/11/2011 Not Available [facility] 3 03:03:16 Osteoporos is 13604050 Completed 200609/01/2011 Not Available [facility] 3 03:03:16 Menopausal symptom 66842566 Completed 200102/11/2011 Not Available [facility] 3 03:03:16 Benign essential hypertensi on 7482560 Active 2000 Not Available [facility] 3 20:15:52 Acute cystitis 88420751 Completed 200402/11/2011 Not Available [facility] 3 03:03:16 Impaired fasting glycemia 490486966 Active Not Available [facility] 3 20:15:52 Disorder of skin and/or subcutaneo us tissue 64340470 Completed 200002/11/2011 Not Available [facility] 3 03:03:16 Pain of breast 75317570 Completed 200002/11/2011 Not Available [facility] 3 03:03:16 Epidermoid cyst of skin 913265514 Completed 02/11/2011 Not Available [facility] 3 03:03:16 Mixed hyperlipid emia 913340039 Active Not Available [facility] 3 20:15:52 Problem Notes None recorded. Procedures Surgical History Date Name Laterality Status Provider Name and Address Organization Details Recorded Time 09/04/19 19 65472: Therapeutic Exercise completed Bud Woods, PT [address] [place], [address], [facility] 09/03/2018 13:18:31 09/04/19 19 73858: Manual Therapy completed Bud Woods, PT [address] [place], [address], [facility] 09/03/2018 13:18:40 08/28/19 19 Physical Activity Counselling completed Bud Woods, PT [address] [place], [address], [facility] 08/27/2018 09:35:16 08/28/19 19 15280: PT Eval, Moderate Complexity completed Bud Woods, PT [address] [place], [address], [facility] 08/27/2018 09:35:20 08/19/19 19 Medicare Wellness Visit completed Jenna Ojeda MA [facility] 08/18/2018 14:00:38 11/14/19 18 Alla - Colonoscopy completed Mohsen Gold MD [address] [place], [address], [facility] 11/13/2017 08:14:34 08/05/19 18 87036: Therapeutic Exercise completed Bud Woods, PT [address] [place] [place], [address], [facility] 08/04/2017 15:33:18 07/24/19 18 04480: Therapeutic Exercise completed Bud Woods, PT [address] [place] [place], [address], [facility] 07/23/2017 13:16:42 07/24/19 18 78945: Manual Therapy completed Bud Woods, PT [address] [place], [address], [facility] 07/23/2017 13:16:34 07/24/19 18 71748: Gait training completed Bud Woods, PT [address] [place], [address], [facility] 07/23/2017 13:16:50 07/10/19 18 28483: Therapeutic Exercise completed Bud Woods, PT [address] [place], [address], [facility] 07/09/2017 12:59:40 07/10/19 18 87574: Manual Therapy completed Bud Woods, PT [address] [place], [address], [facility] 07/09/2017 12:59:50 06/26/19 18 20677: Therapeutic Exercise completed Bud Woods, PT [address] [place], [address], [facility] 06/25/2017 12:59:42 06/26/19 18 09097: Manual Therapy completed Bud Woods, PT [address] [place], [address], [facility] 06/25/2017 12:59:49 06/19/19 18 81424: Therapeutic Exercise completed Bud Woods, PT [address] [place], [address], [facility] 06/18/2017 14:31:15 06/19/19 18 79325: Manual Therapy completed Bud Woods, PT [address] [place], [address], [facility] 06/18/2017 14:31:21 06/06/19 18 27352: Therapeutic Exercise completed Bud Woods, PT [address] [place], [address], [facility] 06/05/2017 13:28:46 06/06/19 18 32318: Manual Therapy completed Bud Woods, PT [address] [place], [address], [facility] 06/05/2017 13:28:43 05/26/19 18 57725: Therapeutic Exercise completed Bud Woods, PT [address] [place] [place], [address], [facility] 05/25/2017 14:02:34 05/19/19 18 54835: Therapeutic Exercise completed Bud Woods, PT [address] [facility] [place], [address], [facility] 05/18/2017 13:10:20 05/19/19 18 87824: Manual Therapy completed Bud Woods, PT [address] [place], [address], [facility] 05/18/2017 13:10:27 05/12/19 18 99993: Therapeutic Exercise completed Bud Woods, PT [address] [place] [place], [address], [facility] 05/12/2017 16:27:02 05/12/19 18 16527: Manual Therapy completed Bud Woods, PT [address] [place], [address], [facility] 05/12/2017 16:27:08 05/04/19 18 36800: Therapeutic Exercise completed Bud Woods, PT [address] [place], [address], [facility] 05/04/2017 12:49:28 05/04/19 18 39398: Manual Therapy completed Bud Woods, PT [address] [place], [address], [facility] 05/04/2017 12:49:34 04/27/19 18 Physical Activity Counselling completed Bud Woods, PT [address] [place], [address], [facility] 04/27/2017 12:44:39 04/27/19 18 11897: PT Eval, Moderate Complexity completed Bud Woods, PT [address] [place], [address], [facility] 04/27/2017 12:44:43 04/08/19 18 Medicare Wellness Visit completed Wendy Abbott LPN [facility] 04/08/2017 09:55:35 02/27/20 16 Medicare Wellness Visit completed Jenna Ojeda MA [facility] 02/27/2016 14:00:15 01/09/20 15 Medicare Wellness Visit completed Linda Nunez MA [facility] 01/08/2015 09:35:43 10/13/19 14 Medicare Wellness Visit completed Lanie Burden LPN [facility] 10/12/2013 11:25:02 09/01/19 12 Medicare Wellness Visit completed Kimi Cuadra MA [facility] 09/01/2011 09:27:20 Imaging Results None recorded. Procedure Notes None recorded. Medical Equipment None Reported. Allergies Allergen ID Allergen Name Allergen Category Reaction Reaction Severity Criticality Documentation Date Start Date Code Code System Note Provider Name and Address Organization Details Recorded Time 251652 atorvasta tin medicatio n myalgias (muscle pain) Not available Not available 10/20/2012 16334 RxNorm Lani Dukes NP [address] [place] [address], [place], [address] [place] [address] 3 13:15:39 Medications Name Sig Start Date Stop Date Status Note LastModified by Organization Details LastModified Time multivita min tablet Take 1 tablet every day by oral route. 2011 active Not Available Not Available Not Avai lable carvedilo l 25 mg tablet TAKE 1 TABLET BY MOUTH TWICE A DAY 2024 active Not Available Not Available Not Avai lable carvedilo l 6.25 mg tablet Take 1 tablet twice a day by oral route. active Not Available Not Available No t Available carvedilo l 12.5 mg tablet TAKE 1 TABLET BY MOUTH TWICE A DAY 12/09 completed Not Available Not Available Not Available atorvasta tin 10 mg tablet Take 1 tablet every day by oral route. 10/20 completed Not Available Not Available Not Available prednison e 20 mg tablet one tablet twice a day for four days then daily for four days 2024 active Not Available Not Available Not Avai lable atenolol 25 mg tablet Take 1 tablet [...] 50 mcg/actua tion nasal spray,jose manuel pension USE 1 SPRAY IN EACH NOSTRIL EVERY DAY 09/03 completed Not Available Not Available Not Available atenolol 50 mg tablet TAKE 1 TABLET [...] Not Available Not Available Not Available Fluzone 45 mcg (15 mcg x 3)/0.5 mL [...] Not Available No t Available Fluzone High-Dose [id number] (PF) 180 mcg/0.5 mL intramusc ular syringe TO BE ADMINIST ERED BY Janet LEON 02/26 completed Not Available Not Available Not Available Vitals Date Recorded Body height Body mass index (BMI) Body weight Heart rate Oxygen saturation Oxygen saturation in Arterial blood by Pulse oximetry Systolic blood pressure Diastolic blood pressure Provider Name and Address Organization Details Last Updated DateTime 5 154.31 cm 33.9 kg/m2 69918.4 4 g 76 /min 99 % 99 % 132 mm[Hg] 70 mm[Hg] Zuri Wilcox [facility] 5 13:46:41 Date Recorded Body height Body mass index (BMI) Body weight Heart rate Oxygen saturation Oxygen saturation in Arterial blood by Pulse oximetry Systolic blood pressure Diastolic blood pressure Systolic blood pressure Diastolic blood pressure Provider Name and Address Organization Details Last Updated DateTime 3 154.94 cm 33.5 kg/m2 89323.2 5 g 74 /min 99 % 99 % 152 mm[Hg] 62 mm[Hg] 150 mm[Hg] 63 mm[Hg] Asia Mulligan [facility] 3 16:04:55 Date Recorded Body height Body mass index (BMI) Body weight Heart rate Oxygen saturation Oxygen saturation in Arterial blood by Pulse oximetry Systolic blood pressure Diastolic blood pressure Provider Name and Address Organization Details Last Updated DateTime 4 154.31 cm 34.3 kg/m2 44022.0 3 g 74 /min 98 % 98 % 124 mm[Hg] 72 mm[Hg] [facility] 4 15:53:20 Date Recorded Body height Heart rate Oxygen saturation Oxygen saturation in Arterial blood by Pulse oximetry Systolic blood pressure Diastolic blood pressure Provider Name and Address Organization Details Last Updated DateTime 3 154.94 cm 66 /min 98 % 98 % 122 mm[Hg] 76 mm[Hg] Asia Mulligan [facility] 3 12:13:08 Date Recorded Body height Body mass index (BMI) Body weight Oxygen saturation Oxygen saturation in Arterial blood by Pulse oximetry Heart rate Systolic blood pressure Diastolic blood pressure Provider Name and Address Organization Details Last Updated DateTime 154.31 cm 33.1 kg/m2 10050.0 7 g 98 % 98 % 68 /min 142 mm[Hg] 76 mm[Hg] ROBBY Herrera [facility] 12:29:24 Date Recorded Systolic blood pressure Diastolic blood pressure Provider Name and Address Organization Details Last Updated DateTime 03/08/2024 138 mm[Hg] 69 mm[Hg] Eddie Russo RN [facility] 03/11/2024 12:13:58 Date Recorded Systolic blood pressure Diastolic blood pressure Provider Name and Address Organization Details Last Updated DateTime 03/10/2024 134 mm[Hg] 74 mm[Hg] Eddie Russo RN [facility] 03/11/2024 12:14:18 Date Recorded Systolic blood pressure Diastolic blood pressure Provider Name and Address Organization Details Last Updated DateTime 03/11/2024 136 mm[Hg] 72 mm[Hg] Eddie Russo RN [facility] 03/11/2024 12:14:37 Social History Question Answer Notes LastModified by Organizat ion Details LastModified Time Tobacco Smoking Status Never Smoker 05/12/22 07/22/24[facility] 13:44:04 Do You Have An Advance Directive? Yes In Chart [email or web address] Information not available 04/18/2009 Do You Wear A Helmet When Biking? Yes Information not available 10/12/2013 Are You Blind Or Do You Have Difficulty Seeing? No Information not available 10/12/2013 What Is Your Level Of Caffeine Consumption? Moderate 2-3 Cups Coffee Daily Information not available 10/12/2013 How Much Tobacco Do You Chew? None [email or web address] Information not available 01/08/2015 Are You Deaf Or Do You Have Serious Difficulty Hearing? No Information not available 10/12/2013 What Type Of Diet Are You Following? REGULAR Information not available 10/12/2013 Which Illicit Or Recreational Drugs Have You Used? None Information not available 02/27/2016 Have There Been Any Changes To Your Family Or Social Situation? No [email or web address] Information not available 09/01/2022 How Many Days In The Past Year Have You Had A Heavy Drinking Consumption (4+ Female, 5+ Male)? 0 Information not available 06/16/2012 Are There Any Guns Present In Your Home? No Information not available 10/12/2013 Do You Use Insect Repellent Routinely? No Information not available 09/01/2022 Live Alone Or With Others? With Others Information not available 10/12/2013 Patient Has Health Care Proxy Signed And In Chart Yes - Radu Duron Information not available 02/27/2016 CCM Consent Discussion 06/25/2015 Consent Signed [email or web address] Information not available 06/25/2015 Marital Status Informatio n not available 10/12/2013 Mosquito Repellent Used Routinely Yes Information not available 10/12/2013 What Was The Date Of Your Most Recent Tobacco Screening? 07/22/2024 05/12/22 JM, 09/01/22, 03/04/23 Information not available 07/22/2024 How Many Children Do You Have? 2 Information not available 10/12/2013 Do You Use Your Seat Belt Or Car Seat Routinely? Yes [email or web address] Information not available 09/01/2022 Seat Belts Used Routinely Yes Information not available 10/12/2013 Smoke Alarm In Home Yes Information not available 10/12/2013 Do You Have Smoke And Carbon Monoxide Detectors In Your Home? Yes [email or web address] Information not available 09/01/2022 Are You Passively Exposed To Smoke? No [email or web address] Information not available 09/01/2022 General Stress Level Low Information not available 02/27/2016 Do You Use Sunscreen Routinely? Yes Information not available 10/12/2013 Do You Have Difficulty Walking Or Climbing Stairs? No Information not available 10/12/2013 Sex: Female Functional Status Question Answer Note LastModified by Organizat ion Details LastModified Time What is your level of alcohol consumption? Occasional 05/12/22 JM, 09/01/22m h, 03/04/23 , 09/04/23m h [email or web address] Information not available 09/04/2023 Do you or have you ever used smokeless tobacco? Never used smokeless tobacco Information not available 02/21/2019 Do you have difficulty doing errands alone? No Information not available 10/12/2013 Do you have difficulty dressing or bathing? No Information not available 10/12/2013 Do you or have you ever used e-cigarettes or vape? Never used electronic cigarettes Information not available 02/21/2019 Mental Status Question Answer Note LastModified by [...] virus, trivalent, preservative 1 completed Not Available [facility] 04/02/2019 02:33:04 Td (adult), 5 Lf tetanus toxoid, preservative free, adsorbed 2 completed Not Available [facility] 04/02/2019 02:34:50 pneumococcal polysaccharide PPV23 2 completed Not Available [facility] 04/02/2019 02:28:10 Influenza, split virus, trivalent, preservative 2 completed Not Available [facility] 04/02/2019 02:18:37 Hep B, adult 3 completed Bharati Pugh RN null, [facility] 01/19/2023 10:16:44 Hep B, adult 4 completed Bharati Pugh RN null, [facility] 01/19/2023 10:16:44 Hep B, adult 3 completed Bharati Pugh RN null, [facility] 01/19/2023 10:16:44 Pneumococcal conjugate PCV 13 6 completed Not Available [facility] 04/02/2019 02:20:18 influenza, unspecified formulation 3 completed Bharati Pugh RN null, [facility] 01/19/2023 10:16:44 Influenza, high-dose, trivalent, PF 4 completed Bharati Pugh RN null, [facility] 01/19/2023 10:16:44 Influenza, high-dose, trivalent, PF 5 completed Bharati Pugh RN null, [facility] 01/19/2023 10:16:44 Influenza, high-dose, trivalent, PF 6 completed Bharati Pugh RN null, [facility] 01/19/2023 10:16:44 Influenza, split virus, quadrivalent, preservative 7 completed Bharati Pugh RN null, [facility] 01/19/2023 10:16:44 Influenza, high-dose, trivalent, PF 8 completed Bharati Pugh RN null, [facility] 01/19/2023 10:16:44 Influenza, high-dose, trivalent, PF 9 completed Bharati Pugh RN null, [facility] 01/19/2023 10:16:44 Influenza, high-dose, quadrivalent, PF 0 completed Bharati Pugh RN null, [facility] 01/19/2023 10:16:44 COVID-19, mRNA, LNP-S, PF, 30 mcg/0.3 mL dose 1 completed Bharati Pugh RN null, [facility] 01/19/2023 10:16:44 COVID-19, mRNA, LNP-S, PF, 30 mcg/0.3 mL dose 1 completed Bharati Pugh RN null, [facility] 01/19/2023 10:16:44 Influenza, high-dose, quadrivalent, PF 1 completed Bharati Pugh RN null, [facility] 01/19/2023 10:16:44 COVID-19, mRNA, LNP-S, PF, 30 mcg/0.3 mL dose 1 completed Bharati Pugh RN null, [facility] 01/19/2023 10:16:44 Influenza, high-dose, quadrivalent, PF 2 completed Bharati Pugh RN null, [facility] 01/19/2023 10:16:44 Influenza, adjuvanted, quadrivalent, PF 3 completed Bharati Pugh RN null, [facility] 01/19/2023 10:16:44 Past Encounters Encounter ID Performer Location Encounter Start Date Encounter Closed Date Diagnosis/Indication Diagnosis SNOMED-CT Code Diagnosis ICD10 Code Diagnosis Note [id number] Lani Dukes NP , [facility] [place], [place]ICE [address] [place] [address] 03/30/2000 13:00:00 04/05/2008 02:02:29 [id number] Lani Dukes NP , [facility] [place], [place]ICE [address] [place] [address] 10/26/2000 09:15:00 04/05/2008 02:02:29 [id number] [facility] [place] [facility] Y [facility] Radiology , [facility] [place] [address] [facility] [place] [address] 11/25/2000 14:30:00 04/05/2008 02:02:29 [id number] Moises Dominguez MD Radiology , [facility] [place] [address] [facility] [place] [address] 11/25/2000 00:00:00 04/05/2008 02:02:29 [id number] Gus Ozuna. , [facility] [place], [address]ICE [address] [place] [address] 11/04/2001 08:26:33 04/05/2008 02:02:29 [id number] [facility] Technolog[facility] st Radiology , [facility] [address] [facility] [place] [address] 11/24/2001 11:08:44 04/05/2008 02:02:29 [id number] [facility] BONE [facility]ENSITY [facility] Radiology , [facility] [address] [place] [address] 1 11/24/2001 00:00:00 04/05/2008 02:02:29 [id number] [facility] LAB LAB - [facility] [address] [place] [place] [address] 1 11/24/2001 10:23:34 04/05/2008 02:02:29 [id number] [facility] [place] MAMMOGRAPH Y Technolog[facility] st Radiology , [address] [place] [address] 1 12/29/2001 08:31:58 04/05/2008 02:02:29 [id number] Mohsen Quintana MD Radiology , [address] [address] 1 12/29/2001 00:00:00 04/05/2008 02:02:29 [id number] Taya Topete MD , [facility] [place], OFFICE [address] [place] [address] [place] [address] 1 01/26/2002 10:23:40 04/05/2008 02:02:29 [id number] [facility] [place] LAB LAB - [address] [address] 1 11/09/2002 08:04:37 04/05/2008 02:02:29 [id number] Lisseth Franco MD , [facility] [place], OFFICE [address] [place] [address] [place] [address] 1 11/07/2002 08:31:41 04/05/2008 02:02:29 [id number] [facility] [place] LAB LAB - [address] [place] [address] 1 11/21/2002 07:47:51 11/21/2002 12:57:39 [id number] [facility] [place] LAB LAB - [address] [place] [address] 1 12/07/2002 10:19:11 12/07/2002 13:44:03 [id number] Edmundo Neal MD Radiology , [address] [place] [address] 1 12/19/2002 11:26:18 12/19/2002 13:54:10 [id number] [facility] [place] M[facility]MO[facility] Y [facility] Radiology , [address] [place] [address] 1 12/19/2002 00:00:00 04/05/2008 02:02:29 [id number] [facility] [place] LAB LAB - [address] [place] [address] 1 10/23/2003 09:29:27 10/23/2003 09:29:49 [id number] Glen Benjamin III, MD FP, [facility] [place], OFFICE [address] [place] [address] 1 10/23/2003 09:02:48 10/23/2003 10:07:27 [id number] Lisseth Franco MD FP, [facility] [place], OFFICE [address] [place] [address] 1 05/23/2004 15:44:00 05/24/2004 08:31:57 [id number] [facility] [place] MAMMO[facility] Y Technolog[facility] Radiology , [address] [place] [address] 1 05/24/2004 10:59:59 05/24/2004 14:16:13 [id number] [facility] [place] MAMMOGRAPH Y Technolog[facility] Radiology , [address] [place] [address] 1 05/24/2004 00:00:00 04/05/2008 02:02:29 [id number] [facility] [place] LAB LAB - [address] [place] [address] 1 05/28/2004 07:29:08 05/28/2004 07:38:47 [id number] Lisseth Franco MD , [facility] [place], OFFICE [address] [place] [address] 1 06/04/2004 12:17:43 06/05/2004 08:50:09 [id number] Lisseth Franco MD , [facility] [place], OFFICE [address] [place] [address] 1 11/27/2005 09:40:23 11/27/2005 12:37:09 [id number] [facility] [place] MAMMOGRAPH Y Technolog[facility] st Radiology , [address] [place] [address] 1 01/09/2006 13:52:01 01/12/2006 07:07:39 [id number] Lani Dukes NP FP, [facility] [place], OFFICE [address] [place] [address] 1 12/22/2006 16:13:07 04/05/2008 02:02:29 [id number] [facility] [place] BONE DENSITY Radiology , [address] [place] [address] 1 12/31/2006 14:28:06 12/31/2006 15:17:12 [id number] [facility] [place] MAMMOGRAPH Y Technologi st Radiology , [address] [place] [address] 1 01/13/2007 15:21:05 01/13/2007 16:47:07 [id number] [facility] [place] LAB LAB - [address] [place] [address] 1 01/26/2007 13:29:15 01/26/2007 13:29:18 [id number] [facility] [place] MAMMOGRAPH Y Technolog[facility] st Radiology , [address] [place] [address] 1 01/17/2008 13:25:46 01/17/2008 15:15:40 [id number] Lani Dukes NP FP, [facility] [place], OFFICE [address] [place] [address] [place] [address] 1 02/15/2008 13:29:44 04/05/2008 02:02:29 [id number] Lani Dukes NP FP, [facility] [place], OFFICE [address] [place] [address] [place] [address] 1 02/15/2008 00:00:00 04/05/2008 02:02:29 [id number] Lani Dukes NP FP, [facility] [place], OFFICE [address] [place] [address] [place] [address] 1 10/19/2008 13:58:11 10/25/2008 08:40:34 [id number] [facility] [place] MAMMOGRAPH Y Technologi st Radiology , [address] [place] [address] 1 03/19/2009 08:59:10 03/22/2009 13:13:32 [id number] [facility] [place] BONE DENSITY Radiology , [address] [place] [address] 1 03/19/2009 09:02:00 03/22/2009 13:13:11 [id number] Lani Dukes NP FP, [facility] [place], OFFICE [address] [place] [address] DR [place] [address] 1 04/18/2009 10:57:52 04/19/2009 09:01:41 [id number] EVERETTE Jane, [facility] [place], OFFICE [address] [place] [address] DR [place] [address] 1 10/31/2009 10:54:55 10/31/2009 13:28:40 [id number] EVERETTE Jane, [facility] [place], OFFICE [address] [place] [address] DR [place] [address] 1 11/30/2009 09:59:56 11/30/2009 14:06:01 [id number] [facility] [place] MAMMOGRAPH Y Technologi st Radiology , [facility] [place] [address] [place] [address] 1 03/26/2010 07:55:00 03/28/2010 10:35:14 [id number] Lani Dukes NP , [facility] [place], [place]ICE [address] [place] [address] 1 07/16/2010 09:22:13 07/16/2010 11:26:41 [id number] Lani Dukes NP , [facility] [place], OFFICE [address] [place] [address] 1 02/11/2011 09:52:43 02/11/2011 10:25:57 [id number] Glen Benjamin III, MD , [facility] [place], OFFICE [address] [place] [address] [place] [address] 1 09/01/2011 09:18:38 09/01/2011 10:03:33 [id number] Javon Hodge MD Radiology , [facility] [place] [address] [place] [address] 1 09/01/2011 10:07:00 09/02/2011 10:20:10 [id number] Glen Benjamin III, MD , [facility] [place], OFFICE [address] [place] [address] [place] [address] 1 02/20/2012 10:29:20 02/20/2012 16:41:10 [id number] Glen Benjamin III, MD , [facility] [place], OFFICE [address] [place] [address] [place] [address] 1 03/22/2012 09:14:42 03/22/2012 09:43:46 [id number] Glen Benjamin III, MD , [facility] [place], OFFICE [address] [place] [address] [place] [address] 1 05/05/2012 11:15:14 05/05/2012 11:50:46 [id number] Glen Benjamin III, MD , [facility] [place], OFFICE [address] [place] [address] [place] [address] 1 06/16/2012 10:51:51 06/16/2012 11:29:45 [id number] Glen Benjamin III, MD , [facility] [place], OFFICE [address] [place] [address] [address] [place] [address] 1 09/28/2012 09:40:06 09/28/2012 10:35:37 [id number] Glen Benjamin III, MD , [facility] [place], OFFICE [address] [place] [address] DR [place] [address] 1 04/04/2013 09:10:14 04/04/2013 09:36:19 Benign essential hypertension 0833925 Blood pressure at goal Mixed hyperlipidemia 140482808 [id number] Glen Benjamin III, MD , [facility] [place], OFFICE [address] [place] [address] 1 10/12/2013 11:10:48 10/12/2013 12:01:14 Mixed hyperlipidemia 992598602 At goal on statin. Benign ess ential hypertension 3957139 Blood pressure at goal Impaired f asting glycemia 235033987 Watch intake of white sugars and white flours. Adult [facility] examination [id number] see Risk Assessment and Lifestyle Change Counseling section above Screening mammography 87420197 Fatigue 81250163 [id number] Maame Tang D.O. , [facility] [place], OFFICE [address] [place] [address] 1 01/08/2015 09:33:46 01/08/2015 10:31:31 Mixed hyperlipidemia 235187685 E78.2 At goal on statin. Benign ess ential hypertension 5709886 I10 At goal. Adult [facility] examination 195861142 Z00.00 see Risk Assessment and Lifestyle Change Counseling section above Screening mammography 24 964804 Z12.31 [id number] Lani Dukes NP , [facility] [place], OFFICE [address] [place] [address] 1 06/25/2015 10:22:52 06/25/2015 10:58:15 Screening for disorder 315300245 Z11.59 Mixed hyperlipidemia 267 338146 E78.2 Cholestero l is at goal Continue to work on diet and exercise as discussed Benign ess ential hypertension 8804790 I10 Blood pressure at goal Active or passive immunization 027258862 Z23 Impaired f asting glycemia 070892147 R73.01 Watch intake of white sugars and white flours. [id number] Mali Jacinto RDN, LDN, [facility] Nutrition -[facility] [place] [address] [place] [address] 06/28/2015 13:25:33 06/28/2015 14:32:12 Impaired fasting glycemia 688821248 R73.01 Benign ess ential hypertension 9323811 I10 Mixed hyperlipidemia 267 580206 E78.2 [id number] Heide Urban PA-C , [facility] [place], OFFICE [address] [place] [address] 1 07/24/2015 10:25:11 07/24/2015 15:21:28 Knee pain 75314596 M25.562 ice after exercise. when ready to exercise go back slowly at 10-15 minutes to start. tylenol prn pain. Benign ess ential hypertension 2203191 I10 sodium restrictio n. adjust medication . now off atenolol and on coreg after hospitaliz ation. Syncope 515160011 R55 normal workup. following acute pain and urinary voiding. [id number] Lani Dukes NP , [facility] [place], OFFICE [address] [place] [address] 1 08/08/2015 13:40:19 08/08/2015 14:04:24 Knee pain 85648906 M25.562 Benign hypertension 1072 5009 I10 Elevated office readings. [id number] Mali Jacinto, RDN, LDN, [facility] Nutrition -[facility] [place] [address] [place] [address] 08/09/2015 11:20:28 08/09/2015 16:20:30 Benign essential hypertension 1080058 I10 Mixed hyperlipidemia 267 849273 E78.2 Impaired f asting glycemia 240089514 R73.01 [id number] Maame MCMILLAN, [facility] [place], OFFICE [address] [place] [address] 1 02/27/2016 13:47:28 02/27/2016 14:36:22 Adult health examination 328635732 Z00.00 see Risk Assessment and Lifestyle Change Counseling section above Mixed hyperlipidemia 267 739144 E78.2 Cholestero l is at goal Continue to work on diet and exercise as discussed Benign ess ential hypertension 9393579 I10 Blood pressure at goal Screening mammography 24 307140 Z12.31 Impaired f asting glycemia 188190783 R73.01 Watch intake of white sugars and white flours. [id number] Maame Tang D.O. , [facility] [place], OFFICE [address] [place] [address] 1 08/25/2016 09:12:57 08/26/2016 08:14:27 Benign essential hypertension 1484976 I10 Blood pressure at goal via home readings Mixed hyperlipidemia 267 760469 E78.2 Cholestero l is at goal Continue to work on diet and exercise as discussed [id number] Maame MCMILLAN, [facility] [place], OFFICE [address] [place] [address] 1 04/08/2017 09:53:36 04/08/2017 10:47:12 Adult health examination 377570746 Z00.00 see Risk Assessment and Lifestyle Change Counseling section above Mixed hyperlipidemia 267 716285 E78.2 Cholestero l is at goal Continue to work on diet and exercise as discussed Benign ess ential hypertension 2917340 I10 Blood pressure at goal via home readings. Screening mammography 24 973933 Z12.31 Pain in left knee 169387 3081 36655 M25.850 [id number] Bud Levi i, PT Physical Therapy, [address] [place] [address] 04/27/2017 11:48:00 04/27/2017 13:35:19 Pain in left knee 4044992081 38689 M25.550 [id number] Bud Levi i, PT Physical Therapy, [address] [place] [address] 1 05/04/2017 10:58:06 05/04/2017 13:40:15 Pain in left knee 8450196837 82972 M25.955 [id number] Bud Levi i, PT Physical Therapy, [address] [place] [address] 1 05/12/2017 15:31:39 05/12/2017 16:30:26 Pain in left knee 3456051244 39704 M25.330 [id number] Bud Levi i, PT Physical Therapy, [address] [place] [address] 1 05/18/2017 08:28:30 05/18/2017 13:50:26 Pain in left knee 9017500671 60766 M25.483 [id number] Bud Levi i, PT Physical Therapy, [address] [place] [address] 1 05/25/2017 13:31:29 05/25/2017 14:33:20 Pain in left knee 5286992767 63436 M25.252 [id number] Bud Levi i, PT Physical Therapy, [address] [place] [address] 1 06/05/2017 13:24:53 06/05/2017 13:43:50 Pain in left knee 8813202940 18621 M25.058 [id number] Bud Levi i, PT Physical Therapy, [address] [address] 1 06/18/2017 13:56:56 06/18/2017 15:00:43 Pain in left knee 3266932148 22890 M25.762 [id number] Bud Levi i, PT Physical Therapy, [address] [address] 1 06/25/2017 11:29:12 06/25/2017 13:09:06 Pain in left knee 5901021666 46400 M25.826 [id number] Bud Levi i, PT Physical Therapy, [address] [address] 1 07/09/2017 11:56:09 07/09/2017 13:32:05 Pain in left knee 8411886844 70386 M25.929 [id number] Bud Levi i, PT Physical Therapy, [address] [address] 1 07/23/2017 11:29:44 07/23/2017 13:31:13 Pain in left knee 6640358648 36981 M25.248 [id number] Bud Levi i, PT Physical Therapy, [address] [address] 1 08/04/2017 14:25:42 08/04/2017 15:40:35 Pain in left knee 8310099587 75552 M25.000 [id number] Maame Tang D.O. , [facility] [place], OFFICE [address] [place] [address] [address] 1 10/06/2017 09:08:48 10/06/2017 09:49:41 Mixed hyperlipidemia 349158607 E78.2 Cholestero l is at goal Continue to work on diet and exercise as discussed Benign ess ential hypertension 9314739 I10 Blood pressure at goal Impaired f asting glycemia 850688584 R73.01 Watch intake of white sugars and white flours. Screening for malignant neoplasm of colon 576301122 Z12.11 Pain in left knee 636127 8241 83476 M25.562 Has seen PT. Bunion 428160714 M21.61 9 Advised wide shoe. Consider wedge. [id number] Mohsen Gold MD [facility], [address] [address] 1 11/13/2017 06:58:17 11/13/2017 12:39:04 [id number] Maame Tang D.O. , [facility] [place], OFFICE [address] [place] [address] 1 08/18/2018 13:58:40 08/18/2018 14:51:53 Adult health examination 164365051 Z00.00 see Risk Assessment and Lifestyle Change Counseling section above Depression screening 171 929960 Z13.89 depression screening tool administer ed, entered into emr, scored and discussed, time greater than 7.5 minutes Mixed hyperlipidemia 267 533623 E78.2 Cholestero l is at goal Continue to work on diet and exercise as discussed Benign ess ential hypertension 9087654 I10 Blood pressure at goal Impaired f asting glycemia 668102465 R73.01 Watch intake of white sugars and white flours. Bilateral knee pain 1187 034710 6716375 M25.561 Screening mammography 24 810903 Z12.31 [id number] Bud Levi i, PT Physical Therapy, [address] [address] 1 08/27/2018 08:46:32 08/27/2018 09:58:28 Pain in right knee 7946204427 29441 M25.510 [id number] Bud Levi i, PT Physical Therapy, [address] [address] 1 09/03/2018 09:56:54 09/03/2018 14:44:04 Pain in right knee 4762390241 27751 M25.641 [id number] Bud Levi i, PT Physical Therapy, [address] [address] 1 09/10/2018 09:27:19 09/10/2018 11:31:22 Pain in right knee 3317494059 18215 M25.074 [id number] Bud Levi i, PT Physical Therapy, [address] [address] 1 09/15/2018 10:24:35 09/15/2018 11:44:14 Pain in right knee 1249270478 92008 M25.843 [id number] Bud Levi i, PT Physical Therapy, [address] [address] 1 09/30/2018 14:27:04 09/30/2018 15:19:17 Pain in right knee 5365972826 08256 M25.836 [id number] Bud Levi i, PT Physical Therapy, [address] [address] 1 10/13/2018 13:55:18 10/14/2018 10:48:05 Pain in right knee 3847421948 70564 M25.178 [id number] Bud Levi i, PT Physical Therapy, [address] [address] 1 10/21/2018 13:48:51 10/21/2018 14:48:45 Pain in right knee 4946220213 90757 M25.018 [id number] Bud Levi i, PT Physical Therapy, [address] [address] 1 10/27/2018 11:24:41 10/28/2018 10:40:18 Pain in right knee 3298550529 43788 M25.804 [id number] Bud Levi i, PT Physical Therapy, [address] [address] 1 11/10/2018 11:29:53 11/10/2018 14:24:16 Pain in right knee 2949747795 32408 M25.747 [id number] Maame MCMILLAN, [facility] [place], OFFICE [address] [place] [address] 1 02/21/2019 09:13:06 02/21/2019 09:39:25 Mixed hyperlipidemia 755618233 E78.2 Cholestero l is at goal Continue to work on diet and exercise as discussed Impaired f asting glycemia 682729016 R73.01 Watch intake of white sugars and white flours. Benign ess ential hypertension 1874896 I10 Blood pressure at goal [id number] Marleni Rizvi . MD MCMILLAN, [facility] [place], OFFICE [address] [place] [address] 1 08/22/2019 08:13:57 08/24/2019 09:13:07 Essential hypertension 46355597 I10 Not controlled . Goal is <140/90-- Advised to cut lisinopril down to 40 mg daily-- If BP not at goal, increase hctz to 25 mg daily-- Continue carvedilol 12.5 BID-- Check BMP-- Check BP daily, record in log. Follow up in 2 weeks. If BP >180/100 call office. Pt agreed with plan. Mixed hyperlipidemia 267 970991 E78.2 Continue pravastati n 10 dailycheck lipids Impaired f asting glycemia 539991517 R73.01 recheck fasting glucose Exposure t o SARS-CoV-2 639764960 Z20.828 COunseled on Covid 19 and ways [...] of the trip. Pt agrees with plan. [id number] Berry Maharaj er, [employer], [facility] [place], [place]ICE [address] [place] [address] 09/05/2019 12:18:37 09/05/2019 13:41:37 Benign essential hypertension 7461340 I10 not at goal of <140/90-- continue lisinopril 40 mg daily-- increase HCTZ to 25 mg daily-- continue carvedilol 12.5 mg BID-- will check on lab results-- follow up in 2 weeks, if BP not at goal of <140/90 will consider adding amlodipine -- low salt diet and exercise advised Osteoarthr itis of knee 383911212 M17.9 Improving compared to 2 years ago. Completed PT.-- continue home exercises- - continue APAP once daily-- dsicussed options if pain worsens including steroid injections . Not needed at this time. [id number] Marleni Rizvi . MD MCMILLAN, [facility] [place], [place]ICE [address] [place] [address] 03/05/2020 10:52:30 03/08/2020 09:42:19 Adult health examination 051386590 Z00.00 In good health no falls neesd lab slip (was sent to her house, did not arrive, will resend) mammo 10/05/2018, ordered colonoscop y 11/13/2017 , repeat 5 years Counseling 132749881 Z71 .9 including cardiovasc ular risk reduction counseling Depression screening 171 778063 Z13.89 depression screening tool administer ed, entered into emr, scored and discussed, time greater than 7.5 minutes Screening for alcohol abuse 823940947 Z13.39 Essential hypertension 80665170 I10 Improving continue lisinopril 40 mg daily, hctz 25 daily, and carvedilol 12.5 mg BID check BP at home later today and message result on the portal will recheck BMP Impaired f asting glycemia 414388795 R73.01 recheck fasting glucose Mixed hyperlipidemia 267 779184 E78.2 Continue pravastati n 10 daily check lipids Screening mammography 24 831037 Z12.31 [id number] Marleni Rizvi . , [facility] [place], OFFICE [address] [place] [address] 08/29/2020 09:26:35 08/29/2020 10:01:01 Essential hypertension 45869537 I10 Controlled continue lisinopril 40 mg daily, hctz 25 daily, and carvedilol 12.5 mg BID Impaired f asting glycemia 153862052 R73.01 labs done yesterda, no in yet Mixed hyperlipidemia 267 412001 E78.2 Continue pravastati n 10 daily Screening mammography 24 018646 Z12.31 Seasonal a llergic rhinitis 351244459 J30.2 Taking chlorphene ramine OTC and flonase, continue Pain in left knee 800509 0120 85311 M25.562 Chronic pain in L knee, OA, reports did pT in past take 1 tylenol daily with good relief -- advised can also try topical voltaren gel prn for flares [id number] Luis Angel Meyer MD , [facility] [place], OFFICE [address] [place] [address] 1 03/12/2021 10:56:01 03/12/2021 11:35:33 Adult health examination 482613597 Z00.00 In good health no fallsfully vaccinated against covid and boosted mammo 11/09/20 mammo birads 1 colonoscop y 11/13/2017 , repeat 5 years -- labs ordered Counseling 094989761 Z71 .9 including cardiovasc ular risk reduction counseling Depression screening 171 Z13.31 depression screening tool administer ed, entered into emr, scored and discussed, time greater than 7.5 minutes Screening for alcohol abuse 451718049 Z13.39 Mixed hyperlipidemia 267 625677 E78.2 Continue pravastati n 10 daily Impaired f asting glycemia 104510480 R73.01 -- recheck labs Benign ess ential hypertension 9730360 I10 at goal of <140/90-- continue lisinopril 40 mg daily-- continue HCTZ to 25 mg daily-- continue carvedilol 12.5 mg BID-- labs ordere-- cont low salt diet and increase exercise Obesity [id number] E66.9 weight stable, counseled on diet and exercisech kaelyn TSH [id number] Maame MCMILLAN, [facility] – [place], [address]ICE [address] [place] [address] 09/10/2021 10:16:59 09/10/2021 11:37:31 Mixed hyperlipidemia [id number] E78.2 Continue pravastati n 10 dailycheck labs Impaired f asting glycemia [id number] R73.01 -- recheck labs Benign ess ential hypertension [id number] I10 Not at goal, is currently ill [...] low salt diet and increase exercise Obesity 166149253 E66.9 counseled on diet and exercisech kaelyn TSH COVID-19 [id number] U07.1 Symptoms started September 01, tested positive that same daySore throat, congestion , cough, loss sense of taste, lethargySy mptoms come and goHad one fever, then resolved with APAPNo dyspnea Reviewed CDC isolation guidelines rest, fluids advisedif worsenign call office Advised booster in the fall [id number] Maame MCMILLAN, [facility] – [place], [address]ICE [address] [place] [address] 11/13/2021 09:43:22 11/13/2021 13:32:38 Benign essential hypertension [id number] I10 At goal of <140/90-- continue lisinopril 40 mg daily-- continue HCTZ to 25 mg daily-- continue carvedilol 12.5 mg BID-- cont low salt diet and increase exercise Essential hypertension 55027130 I10 Controlled continue lisinopril 40 mg daily, hctz 25 daily, and carvedilol 12.5 mg BID Mixed hyperlipidemia 267 524517 E78.2 Controlled , Continue pravastati n 10 daily Pain in throat [id number] R07.0 Sore throat started , with cough and headache. Exposed to covid while on cruise. 2 negative home tests. Is vaccinated , 1 booster, had covid in August. -- PCR test today-- based on symptoms and exposure ray had covid, advised to wear well fitting mask through to thursday-- if worsening, follow up [id number] Maame MCMILLAN, [facility] [place], [place]ICE [address] [place] [address] 05/01/2022 13:52:54 05/02/2022 09:07:40 Increased frequency of urination [id number] R35.0 UA negative Left lower quadrant pain [id number] R10.32 LLQ discomfort x 2 days, pain [...] over the weekend. She will let this ROTARY FURNACE TENDER know if symptoms worsen for further eval [id number] MD HIPOLITO Oliva, [facility] [place], [address]ICE [address] [place] [address] 05/12/2022 07:57:09 05/12/2022 14:12:43 Benign essential hypertension 8222268 I10 At goal of <140/75212 /66 yesterday- - continue lisinopril 40 mg [...] restrictio ns for the surgery. Low risk. [id number] Marleni MCMILLAN, [facility] [place], [place]ICE [address] [place] [address] 09/01/2022 15:44:49 09/01/2022 16:50:40 Adult health examination [id number] Z00.00 In good health no fallswill get covid booster this weekMammo later this yearcolono scopy 11/13/2017 , repeat 5 years, due, she will call to schedule after her upcoming trip due for labs, ordered and provided patient hard copy Depression screening 171 463261 Z13.31 depression screening tool administer ed Screening for alcohol abuse 708747369 Z13.39 Alcohol use screening tool administer ed Mixed hyperlipidemia 267 183824 E78.2 Controlled , Continue pravastati n 10 dailyreche ck labs Benign ess ential hypertension 0371939 I10 NOt at goal, states better controlled at home but not consistent ly at goaldoes not want to add med-- continue lisinopril 40 mg daily, HCTZ to 25 mg daily, carvedilol 25 mg BID-- cont low salt diet and increase exercise-- pt to monitor at home and send readings on portal-- check BMP Screening mammography 24 621127 Z12.31 Bilateral cataracts 9572 2003 H26.9 Surgery last week, went well, getting other eye done next week [id number] Marleni MCMILLAN, [facility] [place], [place]ICE [address] [place] [address] 03/04/2023 12:06:07 03/04/2023 12:28:46 Benign essential hypertension 5569178 I10 Controlled -- continue lisinopril 40 mg daily, HCTZ to 25 mg daily, carvedilol 25 mg BID-- cont low salt diet and increase exercise Mixed hyperlipidemia 267 018480 E78.2 Controlled , Continue pravastati n 10 daily Impaired f asting glycemia 806498986 R73.01 stable-- recheck labs [id number] Berry Maharaj er, [employer] TENDER FP, [facility] [place], OFFICE [address] [place], [place] [address] 09/04/2023 15:44:39 09/07/2023 13:12:41 Adult health examination 209444259 Z00.00 In good health no falls colonoscop [...] shot at next visit Depression screening 171 394520 Z13.31 depression screening tool administer ed Screening for alcohol abuse 341526644 Z13.39 Alcohol use screening tool administer ed Screening for malignant neoplasm of colon 296452938 Z12.11 Referral for a DIRECT booked colonoscop y. This patient is a healthy ASA Class 1 or 2 patient (only mild systemic disease), or a STABLE, well controlled insulin dependent diabetic. They do not have serious cardiac disease ie ND/angiopl asty within 1 year, symptomati c CHF; renal failure with CKD 4 or 5; take Coumadin, Plavix, Aggrenox, etc. Benign ess ential hypertension 2744751 I10 Controlled , slight increase in serum Cr-- repeat bmp non fasting-- continue lisinopril 40 mg daily, HCTZ to 25 mg daily, carvedilol 25 mg BID-- cont low salt diet and increase exercise Bilateral hearing loss 22836981 H91.93 Mild decrease in hearing, not impacting function, prefers to defer audiology at this time Pain of ri ght knee joint [id number] 69821 M25.561 chronic, stiffdiscu ssed stretching , exercisesf ollow up if worsening Weight gain 7675596 R63. 5 up 3 lbs from last year, discussed regular movement and exercise, balanced diet Impaired f asting glycemia 538892704 R73.01 stable, fasting glucose 115 Mixed hyperlipidemia 267 710780 E78.2 Controlled , Continue pravastati n 10 daily [id number] Marleni Harman MD , [facility] [place], OFFICE [address] [place] [address] 03/07/2024 12:09:48 03/07/2024 13:07:26 Benign essential hypertension 9577942 I10 Above goal, reports is controlled or near goal at home-- repeat bmp non fasting-- continue lisinopril 40 mg daily, HCTZ to 25 mg daily, carvedilol 25 mg BID-- cont low salt diet and increase exercise-- monitor BP at home, nursing to call end of the week for BP readings Influenza vaccination declined 901247173 Z28.21 Mixed hyperlipidemia 267 108526 E78.2 Controlled , Continue pravastati n 10 dailycheck fasting labs before wellness Impaired f asting glycemia 464741541 R73.01 stablerech kaelyn before wellness visit [id number] Luis Angel Meyer MD , [facility] [place], [address]ICE [address] [place] [address] 07/22/2024 13:15:42 07/22/2024 15:37:07 Immunization due 254031235 Z23 shingles and td Arthritis of left knee 8465230767 398809 M17.12 warm contracted very broad left kneeright is normal general [ain ambulation pain free static stance and step upneg maneuvers this is an arthritis flareoptio n for NDSAID , pred oral or synovial discusseda greed to oral predration alexsander and possible SE's discussedf ollowup with PCP- candidate for TKR based on chronic 30 degree contractur e and chronic low level pain ? Health Concerns Section Related Observation LastModified by Organization Detai ls LastModified Time None Recorded Concern Status LastModified by Organization Details LastModified Time None Recorded Advance Directives Directive Y: in chart Payers Insurance Date Sequence Insurance Name Policy Number Policy Alexandra Covered Member ID Alexandra Member ID Guarantor Name 03/04/2023 1 [facility] [id number] Luana Duron [id number] Luana Duron 03/04/2023 1 [facility] [id number] Luana Duron [id number] Luana Duron 03/04/2023 1 [place] [employer] Luana Duron [id number] Luana Duron 11/27/2005 1 [facility] (O) [id number] Mohsen Duron [id number] Luana Duron 02/07/2003 1 [facility] KAYY [id number] Mohsen Duron [id number] Luana Duron 09/01/2011 1 [facility] [id number] Mohsen Duron [id number] Luana Duron 05/23/2004 1 [facility] KAYY Duron [id number] Luana Duron 07/28/2024 1 [facility] - MEDICARE ADVANTAGE PLAN (MEDICARE REPLACEMENT HMO) [id number] Luana Duron [id number] Luana Duron Notes Date Note Type Note Provider Name and Address Organization Details Recorded Time 3 text/html Physical Exam/FemaleReported bypatient.PHAPatient is here [...] No personal history of coronary artery disease; [place] 10 year risk Breast Cancer Risk Assessment:No [...] ischemic heart disease; No peripheral vascular disease (65082); No diabetes; No carotid artery stenosis Associated [...] adds saltwalks leaving for a cruise to [place] beginning of September goes [facility] Berry Joshi NP [address] [place], [address] [facility] [place] 16:27:37 3 text/html Doing well L eyelid bothering her (had stye surgically removed, not problem with lid), dry eyes, has appt w eye doctor Berry Joshi NP [address] [place], [address], [facility] [place]04/[place]23 13:43:56 4 text/html Physical Exam/FemaleReported bypatient.PHAPatient [...] No personal history of coronary artery disease; [place] 10 year risk Breast Cancer Risk Assessment:No [...] ischemic heart disease; No peripheral vascular disease (46791); No diabetes; No carotid artery stenosis Associated [...] losing weight. no falls Berry Joshi NP [address] [place] [address], [phone], [facility] [place]04/[place]23 17:07:31 4 text/html VMG HyperlipidemiaReported bypatient.Duration:diagnose d in last year Control:well controlled; improved since last visit; LDL has been <100, goal is <130; treated with medications; Patient understands medications are to lower cholesterol Compliance:compliant with medications; compliant with follow-up visits; compliant with diet Barriers to CareNo identified barriers to care Context:Nonsmoker; No ischemic heart disease; No peripheral vascular disease (85004); No diabetes; No carotid artery stenosis Associated [...] chair exercisesdoes the stairs Berry Joshi NP [address] [place] [address], [phone], [facility] [place]/07/2024 12:43:51 OBGyn Episode No OBEpisode recorded.
[2024-09-12 10:38] LABS: Alanine Aminotransferase 16 U/L (0-31); Albumin Level 4.3 g/dL (3.5-5.0); Alkaline Phosphatase 75 U/L (39-117); Anion Gap 14 (12-20); Aspartate Amino Transferase 19 U/L (5-31); Bilirubin Total 0.4 mg/dL (0.0-1.0); Blood Urea Nitrogen 18 mg/dL (9-16); Calcium 9.5 mg/dL (8.4-10.2); Carbon Dioxide 27 mmol/L (22-29); Chloride 102 mmol/L (96-108); Cholesterol 130 mg/dL (<200); Estimated Glomerular Filt Rate 55; Glucose Random 125 mg/dL (60-115); HDL Cholesterol 35 mg/dL (>40); LDL Cholesterol Calculated 71 mg/dL (<100); Potassium 3.9 mmol/L (3.3-5.1); Sodium 139 mmol/L (135-145); Total Protein 7.4 g/dL (6.5-8.0); Triglycerides 121 mg/dL (<150)
== END 2024-09-12 08:57 | disposition home or self-care (01) ==
LOC: HO.HMGCLDS 08:56
PROVIDERS: PCP Nurse Practitioner Adult Health; Visit Provider Nurse Practitioner Adult Health
DX: E78.2 Mixed hyperlipidemia (principal)
CPT/HCPCS: 36415; 80053; 80061

== ENCOUNTER 2025-03-13 10:06 | Outpatient (REF) | payer MEDICARE, SELFPAY ==
--- OUTSIDE RECORDS SUMMARY | 2025-03-13 11:19 | XMS_ITS | Clinical Summary ---
Author Organization [facility] Address [address] [address] Phone Care Team Providers Care Boiler House Operator Name Role Phone Lani Dukes NP Primary Care Provider Unava ilable Social History Tobacco Use Types Packs/Day Years Used Date Smoking Tobacco: Never Assessed Education Answer Date Recorded Are you interested in more education? Not on jaclyn e 07/11/2022 Are you concerned about learning? Not on file 07/11/2022 No 07/11/2022 No 07/11/2022 Digital Access Answer Date Recorded No 08/11/2022 No 08/11/2022 No 08/11/2022 Reliable internet access at home? Not on file 08/11/2022 Device with a working camera? Not on file Comments Unknown Sex and Gender Information Value Date Recorded Sex Assigned at Not on file Legal Sex Female 10:07 PM EDT Gender Identity Not on file Sexual Orientation Not on file Plan of Treatment Not on file Medical Devices Not on file Insurance [employer] POS PPO REPLACEMENT [employer] POS PPO REPLACEMENT [employer] [place] PPO REPLACEMENT [employer] [place] [employer] PPO REPLACEMENT [facility] MEDICARE POS PPO REPLACEMENT [employer] [place] [employer] PPO REPLACEMENT [employer] [place] [employer] POS PPO REPLACEMENT [employer] [place] [employer] POS PPO REPLACEMENT [employer] PPO REPLACEMENT Care Teams Boiler House Operator Relationship Specialty Start Date End Date Lani Dukes NP PCP - General Family Medicine 11/13/17 Additional Source Comments The information contained in this document represents components of the legal health record. It is not the complete legal health record.[facility]
[2025-03-13 14:48] LABS: Anion Gap 12 (12-20); Blood Urea Nitrogen 18 mg/dL (9-16); Calcium 9.8 mg/dL (8.4-10.2); Carbon Dioxide 29 mmol/L (22-29); Chloride 104 mmol/L (96-108); Estimated Glomerular Filt Rate 54; Potassium 4.5 mmol/L (3.3-5.1); Sodium 140 mmol/L (135-145)
[2025-03-13 18:07] LABS: Microalbum/Creatinine Ratio Ur 19.8 ug/mg cr (<30); Protein/Creatinine Ratio, Ur 0.08 (<0.2); Total Protein Urine Random 13 mg/dL (<12)
== END 2025-03-13 10:07 | disposition home or self-care (01) ==
LOC: HO.HMGCLDS 10:06
PROVIDERS: PCP Nurse Practitioner Adult Health; Visit Provider Nurse Practitioner Adult Health
DX: N18.31 Chronic kidney disease, stage 3a (principal)
CPT/HCPCS: 36415; 80048; 82043; 82570; 84156